=== PATIENT | female | born 1985 | race Caucasian/White ===

== ENCOUNTER 2019-10-21 12:32 | Outpatient (CLI) | payer BC, SELFPAY ==
--- NOTE | ~2019-10-21 | MMUS_ITS ---
EXAMINATION: MM diagnostic jose BI w luis m, US breast LT limited HISTORY: Lump behind left nipple TECHNIQUE: Bilateral ML, MLO and craniocaudal full field and left spot subareolar 3-D tomosynthesis i mages were performed and synthetic 2-D images were generated. CAD analysis was submitted and interpre carito. High resolution left subareolar breast ultrasound was performed. COMPARISON: 01/25/2015 ultrasound left breast biopsy and post biopsy left mammogram 01/25/2015 bilateral complete breast ultrasound BREAST PARENCHYMAL COMPOSITION: The breasts are heterogeneously dense, which may obscure small masses . FINDINGS: MAMMOGRAPHIC FINDINGS: An approximately 11 x 13 mm medial left subareolar circumscribed mass is noted, with biopsy marker. T here is a history of previous reportedly benign biopsy diagnosis of fibroadenoma. No suspicious mass or architectural distortion, malignant calcification, skin thickening or retractio n or significant new or developing density of the left breast is noted otherwise. ULTRASOUND: At 10:00 near the nipple there is a lobular 1.3 x 1.2 cm complex predominantly solid mass with internal communications writer al vascularity and some posterior shadowing. This is increased in size from approximately 7.6 x 10 x 9.5 mm size on 01/25/2015 Ultrasound-guided biopsy is recommended. IMPRESSION: 1. Increased size of complex subareolar left breast mass since 01/25/2015 2. Ultrasound-guided biopsy of left subareolar 10:00 breast mass is recommended BI-RADS category 4, suspicious findings. Dr. Rose telephoned the report and ultrasound-guided biopsy recommendation for the enlarging left dilip ast 10:[address] Worthy's associate Dr. Onofre on 10/21/2019 at 1412 hours. Reviewed, dictated and finalized at location A. IMPRESSION: 1. Increased size of complex subareolar left breast mass since 01/25/2015 2. Ultrasound-guided biopsy of left subareolar 10:00 breast mass is recommended BI-RADS category 4, suspicious findings. Dr. Rose telephoned the report and ultrasound-guided biopsy recommendation for the enlarging left breast 10:[address] Worthy's associate Dr. Fran ayala on 10/21/2019 at 1412 hours.
== END 2019-10-21 12:33 | disposition home or self-care (01) ==
PROVIDERS: PCP Family Medicine; Visit Provider Obstetrics & Gynecology
DX: N63.20 Unspecified lump in the left breast, unspecified quadrant (principal); R92.8 Other abnormal and inconclusive findings on diagnostic imaging of breast
CPT/HCPCS: 76642; 77062; 77066; G0279

== ENCOUNTER 2019-11-01 11:00 | Outpatient (CLI) | payer BC, SELFPAY ==
--- NOTE | ~2019-11-01 | MMUS_ITS ---
MM post biopsy invasive LT, US breast biopsy LT w image EXAMINATION: US GUIDED NEEDLE BIOPSY WITH VAC UUM ASSISTANCE DATE: 11/01/2019 11:59 CDT INDICATION: Left breast mass seen on recent examination. Ultrasound-guided core biopsy is requested to evaluate for malignancy. TECHNIQUE AND FINDINGS: The risks and potential benefits of the procedure were discussed with the patient, and written inform ed consent was obtained. After sterile preparation of the left breast, 1% lidocaine was utilized for local anesthesia. 1% lidocaine with epinephrine was used for deep anesthesia. A 10G vacuum-assisted biopsy gun needle was advanced through to the outer edge of the region of inter est from a superior approach utilizing sonographic guidance. A total of 4 tissue core samples were o btained through the lesion. An Inrad tissue marker clip was then placed at the biopsy site. Hemostas is was achieved. The patient tolerated procedure well and there was no evidence of immediate complication. The patien t was given verbal instructions partly is from the department. Left breast mammograms to document ti ssue marker clip placement. The tissue samples were submitted to surgical pathology for histologic an alysis.] IMPRESSION: 1. Successful ultrasound-guided vacuum-assisted biopsy of left breast mass with tissue marker placem ent. Please refer to pathology report for histologic analysis. Reviewed, dictated and finalized at location A. IMPRESSION: 1. Successful ultrasound-guided vacuum-assisted biopsy of left breast mass wit h tissue marker placement. Please refer to pathology report for histologic anal ysis.
== END 2019-11-01 11:01 | disposition home or self-care (01) ==
LOC: ANHIMG 11:05
PROVIDERS: PCP Family Medicine; Visit Provider Obstetrics & Gynecology
DX: R92.8 Other abnormal and inconclusive findings on diagnostic imaging of breast (principal)
CPT/HCPCS: 19083; 88305; A4648

== ENCOUNTER 2019-11-14 09:02 | Outpatient (CLI) | payer BC, SELFPAY ==
--- NOTE | ~2019-11-14 | US_ITS ---
EXAMINATION: US venous doppler [facility] DATE: 11/14/2019 09:52 INDICATION: History of pulmonary embolism and deep venous thrombosis TECHNIQUE: Rao scale images without and with compression and Doppler images of the left lower extrem ity veins were obtained. COMPARISON: 05/16/2019 FINDINGS: The left common femoral vein, profunda femoral vein, femoral vein, popliteal vein, peroneal trunk, posterior tibial veins, and greater saphenous vein are patent. IMPRESSION: 1. Patent left lower extremity veins. No evidence of deep venous thrombosis. Reviewed, dictated and finalized at location A.
== END 2019-11-14 09:03 | disposition home or self-care (01) ==
LOC: ANHIMG 09:04
PROVIDERS: PCP Family Medicine; Visit Provider Family Medicine
DX: I26.99 Other pulmonary embolism without acute cor pulmonale (principal); I82.409 Acute embolism and thrombosis of unspecified deep veins of unspecified lower extremity
CPT/HCPCS: 93971

== ENCOUNTER 2019-11-19 08:16 | Outpatient (CLI) | payer BC, SELFPAY ==
[2019-11-19 09:03] LABS: D Dimer 0.27 ug/mL (<0.48)
== END 2019-11-19 08:17 | disposition home or self-care (01) ==
PROVIDERS: PCP Family Medicine; Visit Provider Family Medicine
DX: I26.99 Other pulmonary embolism without acute cor pulmonale (principal); I82.409 Acute embolism and thrombosis of unspecified deep veins of unspecified lower extremity
CPT/HCPCS: 36415; 85380

== ENCOUNTER 2020-03-31 11:59 | Outpatient (CLI) | payer BC, SELFPAY ==
--- NOTE | ~2020-03-31 | US_ITS ---
EXAMINATION: US venous doppler [facility] DATE: 03/31/2020 12:46 INDICATION: Bilateral lower limb swelling TECHNIQUE: Rao scale images without and with compression and Doppler images of the bilateral lower e xtremity veins were obtained. COMPARISON: 11/14/2019 FINDINGS: The right common femoral vein, profunda femoral vein, femoral vein, popliteal vein, peroneal trunk, p osterior tibial veins, and greater saphenous vein are patent. The left common femoral vein, profunda femoral vein, femoral vein, popliteal vein, peroneal trunk, po sterior tibial veins, and greater saphenous vein are patent. IMPRESSION: 1. Patent bilateral lower extremity veins. No evidence of deep venous thrombosis. Reviewed, dictated and finalized at location A. IMPRESSION: 1. Patent bilateral lower extremity veins. No evidence of deep venous thrombosi s.
== END 2020-03-31 12:00 | disposition home or self-care (01) ==
LOC: ANHIMG 12:06
PROVIDERS: PCP Family Medicine; Visit Provider Family Medicine
DX: I82.409 Acute embolism and thrombosis of unspecified deep veins of unspecified lower extremity (principal); M79.606 Pain in leg, unspecified
CPT/HCPCS: 93970

== ENCOUNTER 2020-08-20 11:20 | Outpatient (CLI) | payer BC, SELFPAY ==
--- NOTE | ~2020-08-20 | US_ITS ---
EXAMINATION: US venous doppler LE RT DATE: 08/20/2020 12:08 INDICATION: Right lower limb pain. Personal history of venous thrombosis. TECHNIQUE: Grayscale ultrasound images without and with compression and Doppler ultrasound images of the right lower extremity veins were obtained. COMPARISON: None. FINDINGS: The visualized portions of right common femoral vein, profunda (deep) femoral vein, femoral vein, pop liteal vein, peroneal trunk, posterior tibial veins, peroneal veins, gastrocnemius vein and greater s aphenous vein outflow are patent. IMPRESSION: 1. No deep venous thrombosis in the right lower limb. Reviewed, dictated and finalized at location A.
== END 2020-08-20 11:21 | disposition home or self-care (01) ==
PROVIDERS: PCP Family Medicine; Visit Provider Physician Assistant
DX: Z86.718 Personal history of other venous thrombosis and embolism (principal); M25.561 Pain in right knee; M25.461 Effusion, right knee
CPT/HCPCS: 93971

== ENCOUNTER 2021-03-05 08:57 | Outpatient (CLI) | payer BC, SELFPAY ==
--- NOTE | ~2021-03-05 | US_ITS ---
EXAMINATION: US abdomen complete EXAM DATE: 03/05/2021 09:40 INDICATION: R10.9 - Unspecified abdominal pain. Bilat flank pain. TECHNIQUE: Multiple grayscale and Doppler images of the complete abdomen were obtained (by a technolo gist who performed the scan) and subsequently reviewed. There is no prior study for comparison. FINDINGS: The abdominal aorta is normal in caliber. Visualized portion IVC is patent. The pancreatic head a nd body are normal in appearance. The pancreatic tail is not visualized. The liver has normal echogenicity and contour. There are no focal liver lesions identified. There is no evidence of intrahepatic biliary duct dilation. Portal venous flow was seen in the hepatopedal , normal direction and has normal Doppler waveform. Common bile duct measures 3 mm, which is normal. The gallbladder wall is normal in thickness, with ex pected amount of distention. No sonographic evidence of pericholecystic fluid. There is no cholelit hiases. Technologist performing exam reports patient did not demonstrate sonographic Crystal's sign. Please note that this sign is less reliable in patients who have received pain medication. Right kidney: There is normal contour and echogenicity. It measures 11.4 x 4.6 x 5.8 centimeters. There are no focal renal lesions identified. There is no hydronephrosis. Left kidney: There is normal contour and echogenicity. It measures 10.3 x 4.9 x 4.6 centimeters. T here are no focal renal lesions identified. There is no hydronephrosis. Spleen normal in size at 10 cm with anechoic cystic region measuring 2.6 cm, benign. IMPRESSION: 1. Benign splenic cystic lesion. 2. No hydronephrosis or other acute findings. Reviewed, dictated and finalized at location A.
[2021-03-05 10:24] LABS: Add Urine Microscopic? YES; Appearance Urine Clear (Clear); Bilirubin Urine Negative (Negative); Blood Urine 1+ (Negative); Color Urine Straw (Yellow); Glucose Urine UA Negative (Negative); Ketones Urine Negative (Negative); Leukocyte Esterase Ur Trace LEU/UL (NEGATIVE); Mucus Urine Rare /lpf; Nitrate Urine Negative (Negative); Protein Urine Negative (Negative); Specific Grav Ur 1.006 (1.001-1.035); Squamous Epithelial Cell Urine Moderate /hpf (Few); Urobilinogen Urine Negative mg/dL (<2.0); WBC Urine 0-3 /hpf (0-3)
[2021-03-05 10:27] LABS: Basophils Percent Auto 0.6 % (0.2-1.2); Eosinophils Absolute Auto 0.1 K/mm3 (0-0.3); Eosinophils Percent Auto 0.8 % (0-4.4); Hematocrit 41.1 % (37.0-47.0); Hemoglobin 13.7 g/dL (12.0-15.0); Immature Granulocyte Absolute 0.02 K/mm3 (0.00-0.031); Immature Granulocyte Percent A 0.3 % (0-0.5); Lymphocytes Absolute Auto 2.17 K/mm3 (0.9-3.2); Lymphocytes Percent Auto 30.2 % (18.3-44.2); Mean Corpuscular HGB Conc 33.3 g/dl (32-36); Mean Corpuscular Hemoglobin 32.3 pg (26-34); Mean Corpuscular Volume 96.9 fl (80-100); Mean Platelet Volume 10.8 fl (7.4-10.4); Monocytes Absolute Auto 0.3 K/mm3 (0.1-0.6); Monocytes Percent Auto 4.5 % (2.6-8.5); Neutrophils Absolute Auto 4.6 K/mm3 (1.3-6.7); Neutrophils Percent Auto 63.6 % (45.5-73.1); Platelet Count Result 229 k/mm3 (150-375); Red Blood Count 4.24 M/mm3 (4.2-5.4); Red Cell Distribution Width 12.7 % (11.5-14.5); White Blood Count 7.2 K/mm3 (4.5-10.0)
[2021-03-05 12:38] LABS: Alanine Aminotransferase 18 U/L (4-35); Albumin Level 4.8 g/dL (3.5-5.1); Alkaline Phosphatase 43 U/L (38-126); Anion Gap 11 mmol/L (8-16); Aspartate Amino Transferase 23 U/L (14-36); Bilirubin,Total 0.5 mg/dL (0.2-1.3); Blood Urea Nitrogen 14 mg/dL (7-17); Calcium 9.2 mg/dL (8.4-10.2); Carbon Dioxide 23 mmol/L (22-30); Chloride 106 mmol/L (98-107); Estimated Glomerular Filt Rate > 60; Glucose 94 mg/dL (65-110); Potassium 4.2 mmol/L (3.4-5.0); Sodium 140 mmol/L (137-145)
== END 2021-03-05 08:58 | disposition home or self-care (01) ==
PROVIDERS: PCP Family Medicine; Visit Provider Physician Assistant
DX: I26.99 Other pulmonary embolism without acute cor pulmonale (principal); D73.4 Cyst of spleen; F41.9 Anxiety disorder, unspecified; J30.9 Allergic rhinitis, unspecified; I51.89 Other ill-defined heart diseases; Z00.00 Encounter for general adult medical examination without abnormal findings
CPT/HCPCS: 36415; 76700; 80053; 81001; 84443; 85025

== ENCOUNTER 2021-03-08 13:45 | Outpatient (CLI) | payer BC, SELFPAY ==
[2021-03-08 14:49] LABS: Beta HCG Quantitative < 2.39 mIU/ML
== END 2021-03-08 13:46 | disposition home or self-care (01) ==
LOC: ANHLAB 13:47
PROVIDERS: PCP Family Medicine; Visit Provider Physician Assistant
DX: N92.6 Irregular menstruation, unspecified (principal)
CPT/HCPCS: 36415; 84702

== ENCOUNTER 2023-03-13 14:14 | Outpatient (CLI) | payer BC, SELFPAY ==
--- NOTE | ~2023-03-13 | US_ITS ---
EXAMINATION: US venous doppler [facility] DATE: 03/13/2023 14:59 INDICATION: Left lower limb pain. TECHNIQUE: Grayscale ultrasound images without and with compression and Doppler ultrasound images of the left lower extremity veins were obtained. COMPARISON: Ultrasound 03/31/2020 FINDINGS: The visualized portions of left common femoral vein, profunda (deep) femoral vein, femoral vein, popl iteal vein, peroneal veins, posterior tibial veins, and greater saphenous vein outflow are patent. IMPRESSION: 1. No deep venous thrombosis. Reviewed, dictated and finalized at location A.
--- NOTE | ~2023-03-13 | XR_ITS ---
XR knee LT 3V 03/13/2023 14:46 Indication: Left knee pain Procedure: 3 views left knee Comparison: No prior studies for comparison. Findings: No fracture, subluxation or dislocation. There is anatomic alignment. No joint effusion. No foreign bodies. Impression: 1: No significant bone or joint abnormality. Reviewed, dictated and finalized at location A. Impression: 1: No significant bone or joint abnormality.
== END 2023-03-13 14:15 | disposition home or self-care (01) ==
PROVIDERS: PCP Family Medicine; Visit Provider Physician Assistant
DX: Z86.718 Personal history of other venous thrombosis and embolism (principal); M79.89 Other specified soft tissue disorders; M25.562 Pain in left knee
CPT/HCPCS: 73562; 93971

== ENCOUNTER 2023-03-27 15:24 | Outpatient (CLI) | payer BC, SELFPAY ==
--- NOTE | ~2023-03-27 | MR_ITS ---
EXAMINATION: MR knee LT wo con DATE: 03/27/2023 15:55 INDICATION: M25.562 - Pain in left knee TECHNIQUE: Magnetic resonance imaging (MRI) of the knee was performed without intravenous contrast. S equences included axial PD-weighted FS FSE, coronal PD-weighted FSE and PD-weighted FS FSE, sagittal PD-weighted FSE, and sagittal T2-weighted FS FSE. COMPARISON: X-ray left knee 03/13/2023 FINDINGS: Medial compartment: Mild medial compartment cartilage thinning. Blunted apex at the meniscal body. Oblique tear at the ju nction of the posterior horn and body extending to the undersurface Lateral compartment: Meniscus and cartilage intact. Patellofemoral compartment: Partial-thickness cartilage signal abnormality with subchondral edema on the medial facet. Retinacula intact. Ligaments and tendons: Mild thickening and increased signal intensity in the MCL. The ACL, PCL, and LCL are intact. Remainin g flexor and extensor tendons are intact. Fluid: No significant fluid collection. Osseous/other: No suspicious focal or diffuse marrow signal. IMPRESSION: Oblique undersurface tear of the junction of the medial meniscal posterior horn/body. Apical tear of the medial meniscal body. Partial MCL tear. Mild chondromalacia patella. Reviewed, dictated and finalized at location K. IMPRESSION: Oblique undersurface tear of the junction of the medial meniscal posterior horn /body. Apical tear of the medial meniscal body. Partial MCL tear. Mild chondromalacia patella.
== END 2023-03-27 15:25 ==
PROVIDERS: PCP Family Medicine; Visit Provider Physician Assistant
DX: S83.242A Other tear of medial meniscus, current injury, left knee, initial encounter (principal); S83.412A Sprain of medial collateral ligament of left knee, initial encounter; M22.42 Chondromalacia patellae, left knee
CPT/HCPCS: 73721

== ENCOUNTER 2023-04-30 08:28 | Outpatient (RCR) | payer BC, SELFPAY ==
--- NOTE | 2023-04-30 16:31 | PTOPEVAL1 ---
Assessment and note entered by Savannah Cassidy, PT, DPT Evaluation Information Assessment Status Evaluation Diagnosis L medial meniscus tear Onset 6 weeks Subjective Information Pt states she has a L knee medial meniscus tear, she is getting this repaired in Jun. She states she also has a history of plantar fascia pain. Reported Pain Level Pain Score 0: Self Report Assessment PT Clinical Summary Carlos presents to therapy today for her initial evaluation today with a diagnosis of a L knee medial meniscus tear. Today she demonstrates good knee ROM with a minor increase in pain with resistance. She reports pain with jogging and direction changes. Skilled therapy services are indicated to improve hip and knee stability. Plan of Care Interventions Electrical Stimulation,Gait Training,Hot Pack/Cold Pack,Manual Therapy,Neuro Re-education,Patient/ Caregiver Educati,Therapeutic Activities, Therapeutic Exercise PT Services Indicated Yes Treatment Frequency and 1x/wk for 4 visits Duration These treatments will address the objective and functional deficits as defined above. The patient will be advanced safely and appropriately in order for the patient to progress towards his/her prior level of function. Additional exercises will be introduced and as well as a comprehensive home exercise program upon discharge, if needed, ?to ensure carryover of functional gains achieved in the clinic. This treatment plan has been reviewed and agreement upon by the patient.
--- NOTE | 2023-04-30 16:36 | OPREHPOC ---
Outpatient Therapy Plan of Care This is a Multidisciplinary Plan of Care that may contain components documented by all disciplines (PT, OT, and ST.) PT Problem 1 PT Problem #1 Knowledge Deficit PT Goal 1 Goal Pt to be IND with issued Target Visit 4 PT Problem 2 PT Problem #2 Pain PT Goal 1 Goal Pt to report knee pain no greater than 3/10 during ADLs. Target Visit 4 PT Problem 3 PT Problem #3 Impaired Strength PT Goal 1 Goal Pt to demonstrates good knee alignment during resisted side stepping Target Visit 4 PT Goal 2 Goal Pt to demonstrate good knee alignment during functional squatting. Target Visit 4
--- NOTE | 2023-05-07 15:41 | PCPTNOTE ---
Patient called & cancelled scheduled appointment this date due to wanting to lighten her schedule. Called and LVM to see if she wants to be discharged.
--- NOTE | 2023-05-08 10:49 | PCPTNOTE ---
Patient called and states she has school and is too busy for therapy.
--- NOTE | 2023-06-15 08:30 | PTOPDC ---
Assessment and note entered by Savannah Cassidy, PT, DPT Evaluation Information Assessment Status Discharge - Pt Not Present Diagnosis L medial meniscus tear Onset 6 weeks Subjective Information Pt was evaluated on 04/30/23 and called back to cancel all of her appointments d/t not having time to complete therapy. Have not heard from pt since . Assessment PT Clinical Summary Pt was evaluated on 04/30/23 and did not complete any follow up visits. She will be discharged at this time.
== END 2023-06-15 09:07 | disposition home or self-care (01) ==
LOC: ANHGOSHPT 08:28
PROVIDERS: PCP Family Medicine; Visit Provider Orthopaedic Surgery
DX: S83.249A Other tear of medial meniscus, current injury, unspecified knee, initial encounter (principal); S89.92XA Unspecified injury of left lower leg, initial encounter
CPT/HCPCS: 97110; 97161

== ENCOUNTER → 2023-05-26 13:02 | Outpatient (CLI) | payer BC, SELFPAY ==
--- NOTE | ~2023-05-26 | US_ITS ---
EXAMINATION:US venous doppler LE BI INDICATION:History of DVT. TECHNIQUE: Multiple grayscale, color flow and Doppler images of the right and left lower extremity de ep venous systems were obtained and reviewed. COMPARISON:03/13/2023 FINDINGS: The common femoral, superficial femoral and popliteal veins demonstrate normal respiratory variation, augmentation and compressibility. Color flow is also seen within the posterior tibial, pe roneal, greater saphenous and profunda veins. IMPRESSION: 1: No lower extremity deep venous thrombosis. Reviewed, dictated and finalized at location L. HER SCREEN REPAIRER
== END ==
PROVIDERS: PCP Orthopaedic Surgery; Visit Provider Orthopaedic Surgery
DX: Z86.718 Personal history of other venous thrombosis and embolism (principal)
CPT/HCPCS: 93970

== ENCOUNTER 2023-08-04 00:16 | Day surgery (SDC) | payer BC, SELFPAY ==
[2023-05-21 08:24] VITALS: BMI 31.0
--- NOTE | 2023-05-21 08:30 | PC.NURSE ---
Report to the Outpatient Waiting Room, entrance under the green pavilion located off [facility], at time 11:30 on date 06/03/23. Planned Procedure Time: 1:30. Time changes happen often and if your time is changed the preop area will call you the afternoon before. - You and your visitor will be asked to self-screen and do not enter if you have any COVID symptoms. - A mask is optional within the hospital at this time. Patients may have clear liquids (water, carbonated beverages, clear teas, apple juice) until 3 hours prior to surgery (10:30) with a maximum of 20 ounces. - No food from midnight until time of surgery Take the following medications with a SIP of water the morning of surgery: NONE DO NOT STOP ANY OF YOUR OTHER PRESCRIPTION MEDICATIONS PRIOR TO SURGERY ?EXCEPT THE FOLLOWING Medications to discontinue per physician: ASPIRIN Date to take last dose: 05/27/23 PER PT Please no make-up, nail somali, hairspray, perfume, deodorant, or body powder the day of surgery. No jewelry (including any body piercings) or valuables the day of surgery, leave them at home. Please take a shower or bath the night before, or the morning of, surgery with an antibacterial soap. Wear comfortable, loose fitting clothing. - Jewelry must be removed prior to entering the operating room. Rings and piercings that are not removed may be cut off. - The hospital will not accept responsibility for valuables. - Please leave all valuables, including medications, at home the day of surgery. If you are going home after surgery, a licensed commercial collections driver must drive you home. - NO public transportation without another adult if you receive anesthesia. - We recommend that an adult stay with you for 24 hours following discharge. - We also recommend that you do not drive, make important decision, drink alcoholic beverages, or take any drugs that were not prescribed by your health care provider for at least 24 hours after your discharge time. Follow any additional instructions given to you from your surgeon. If you or anyone in your household have experienced Covid symptoms in the past week, please notify your surgeon or the nurse liaison at the phone number below for possible testing. Telephone instructions given to PT - DEIRDRE WILLINGHAM and asked if any additional questions and then verbalized understanding. Patient advised to call surgeon office or pre surgery nurse liaison [phone] if any additional questions.
--- NOTE | 2023-06-08 14:48 | PC.NURSE ---
Report to the Outpatient Waiting Room, entrance under the green pavilion located off [facility], at 1000 on 06/16/23. Planned Procedure Time: 1200. Time changes happen often and if your time is changed the preop area will call you the afternoon before. - You and your visitor will be asked to self-screen and do not enter if you have any COVID symptoms. - A mask is optional within the hospital at this time. Patients may have clear liquids (water, carbonated beverages, clear teas, apple juice) until 3 hours prior to surgery with a maximum of 20 ounces. - No food from midnight until time of surgery Take the following medications with a SIP of water the morning of surgery: none DO NOT STOP ANY OF YOUR OTHER PRESCRIPTION MEDICATIONS PRIOR TO SURGERY ?EXCEPT THE FOLLOWING Medications to discontinue per physician Aspirin Date to take last dose [address] Hogan instructions Please no make-up, nail armenian, hairspray, perfume, deodorant, or body powder the day of surgery. No jewelry (including any body piercings) or valuables the day of surgery, leave them at home. Please take a shower or bath the night before, or the morning of, surgery with an antibacterial soap. Wear comfortable, loose fitting clothing. - Jewelry must be removed prior to entering the operating room. Rings and piercings that are not removed may be cut off. - The hospital will not accept responsibility for valuables. - Please leave all valuables, including medications, at home the day of surgery. If you are going home after surgery, a licensed sheet pile driver operator must drive you home. - NO public transportation without another adult if you receive anesthesia. - We recommend that an adult stay with you for 24 hours following discharge. - We also recommend that you do not drive, make important decision, drink alcoholic beverages, or take any drugs that were not prescribed by your health care provider for at least 24 hours after your discharge time. Follow any additional instructions given to you from your surgeon. If you or anyone in your household have experienced Covid symptoms in the past week, please notify your surgeon or the nurse liaison at the phone number below for possible testing. Telephone instructions given to patient and asked if any additional questions and then verbalized understanding. Patient advised to call surgeon office or pre surgery nurse liaison [phone] if any additional questions.
--- NOTE | 2023-06-08 14:56 | PC.NURSE ---
Reviewed information from previous interview (05/21/23) w/patient-denies changes with exception COVID positive on 05/26/23, states tested negative this am.
[2023-07-28 09:25] VITALS: BMI 31.0
--- NOTE | 2023-07-28 09:26 | PC.NURSE ---
Report to the Outpatient Waiting Room, entrance under the green pavilion located off [facility], at time 1130 on date 08/04/23. Planned Procedure Time: 1330. Time changes happen often and if your time is changed the preop area will call you the afternoon before. - You and your visitor will be asked to self-screen and do not enter if you have any COVID symptoms. - A mask is optional within the hospital at this time. Patients may have clear liquids (water, carbonated beverages, clear teas, apple juice) until 3 hours prior to surgery with a maximum of 20 ounces. - No food from midnight until time of surgery Take the following medications with a SIP of water the morning of surgery: NONE DO NOT STOP ANY OF YOUR OTHER PRESCRIPTION MEDICATIONS PRIOR TO SURGERY ?EXCEPT THE FOLLOWING Medications to discontinue per physician: ASPIRIN Date to take last dose: 07/28/23 PER PT Please no make-up, nail danish, hairspray, perfume, deodorant, or body powder the day of surgery. No jewelry (including any body piercings) or valuables the day of surgery, leave them at home. Please take a shower or bath the night before, or the morning of, surgery with an antibacterial soap. Wear comfortable, loose fitting clothing. - Jewelry must be removed prior to entering the operating room. Rings and piercings that are not removed may be cut off. - The hospital will not accept responsibility for valuables. - Please leave all valuables, including medications, at home the day of surgery. If you are going home after surgery, a licensed otr driver must drive you home. - NO public transportation without another adult if you receive anesthesia. - We recommend that an adult stay with you for 24 hours following discharge. - We also recommend that you do not drive, make important decision, drink alcoholic beverages, or take any drugs that were not prescribed by your health care provider for at least 24 hours after your discharge time. Follow any additional instructions given to you from your surgeon. If you or anyone in your household have experienced Covid symptoms in the past week, please notify your surgeon or the nurse liaison at the phone number below for possible testing. Telephone instructions given to PT - DEIRDRE WILLINGHAM and asked if any additional questions and then verbalized understanding. Patient advised to call surgeon office or pre surgery nurse liaison [phone] if any additional questions.
--- NOTE | 2023-08-03 14:03 | WPDANESEPPF ---
Anes - Initial Pre Proc Eval Procedure: Operation Date: 08/04/23 13:30 Proposed Procedures p Left Knee Arthroscopy, Left Plantar Fascia Injection - Jonathon Baez MD Date/Time: 08/03/23 14:03 Surgeon: Jonathon Baez MD Pre Op Diagnosis: Lt Knee Medial Meniscus Tear, (cont) Patient Data Age: 37 Gender: F Height: 1.6 m Weight: 79.4 kg Allergies Allergy/AdvReac Type Severity Reaction Status Date / Time meloxicam AdvReac Mild Rash Verified 08/04/23 11:33 Home Medications Medication Instructions Recorded Confirmed Type aspirin 81 mg chewable tablet 81 mg PO DAILY 05/21/23 08/04/23 History chlorhexidine gluconate 4 % 1 applic topical DAILY #237 mL 05/27/23 07/30/23 Rx topical liquid (Hibiclens) rivaroxaban 10 mg tablet (Xarelto) 10 mg PO DAILY 14 days #14 tabs 07/30/23 07/30/23 Rx Patient hx anesthesia problems: none Family hx anesthesia problems: none Results Review: All pre-operative results and documents have been reviewed as part of the pre-operative evaluation. [facility] Past Medical History Medical History (Updated 07/30/23 @ 11:28 by NAVEEN Burden) Allergic rhinitis Anxiety Diastolic dysfunction DVT (deep venous thrombosis) History of DVT/PE Left knee injury Migraines Typically 1 time a month. Plantar fasciitis of left foot Pulmonary embolism Wears glasses Surgical History Surgical History History of wisdom tooth extraction Family History Family History Father Family history of lung cancer Mother Family history of lung cancer Grandparent History of blood clots Cerebrovascular accident Unknown Hypertension Arthritis Social History Social History Social History: The patient lives in [place]. She has 2 sons, one is 13 years old today and the other is 9 years old. She works at [employer]. She does not answer mother, Jess Jerry, as her surrogate decision-maker and she wishes to be full code. She smokes socially. No alcohol or drug abuse. Smoking status: Never smoker Alcohol intake: current Drinks per week: 3 Substance use: never Substance use type: does not use Lack of Transportation: No Lack of Food: Never True Current Housing: I Have Housing Concerned About Future Housing: No Difficulty Paying Gas/Electric Bills: No Difficulty Paying for Meds: No Currently Unemployed: No Education: Bachelor's Degree Difficulty w/ Childcare or Family Care: No Living arrangements: with family Occupation/Education: occupation Additional occupation/education comments: seaman officer- [employer] Gender identity (if verbalized by the patient): Female Spiritual care concerns: No Agree to blood products: Yes Anes - Eval Final PreProcedure Day of Procedure 08/03/23 14:03 Patient weight: obese Heart: regular rate and rhythm Lungs: clear to auscultation Airway: Mallampati scale class II Neurological: alert and oriented Last oral intake: >/= 8 hours ASA classification: III Emergent: no Anesthetic plan: proceed Anesthesia type and monitoring: general LMA and standard monitoring Results Review: All pre-operative results and documents have been reviewed as part of the pre-operative evaluation. Informed Consent: The patient's anesthetic plan and its attendant risks and benefits were discussed with the patient/family/POA. Questions were solicited and answers provided to the satisfaction of the patient/family/POA.
[2023-08-04] VITALS (7 sets, daily range): BP systolic 97–139; BP diastolic 59–72; PULSE 61–92; RESP 14–20; TEMP 36.4–36.6; O2SAT 99–100
--- NOTE | 2023-08-04 07:16 | WPDHPUPDATE1 ---
History and Physical Update Update Date/Time: 08/04/23 07:16 History and Physical has been reviewed, including an updated exam of the patient. There are NO changes in the patient's condition. Risks, benefits, and alternatives have been discussed and questions answered. Patient agrees to proceed with procedure.
[2023-08-04] MEDS: CELECOXIB 200 MG CAPSULE PO (11:36)
[2023-08-04] MEDS: ACETAMINOPHEN 500 MG TABLET 1000 MG PO (11:36)
[2023-08-04] MEDS: LACTATED RINGERS 1,000 ML 30 ML IV CONT (11:53)
[2023-08-04] MEDS: ceFAZolin 2 GM/D5W 50 ML 2 GM/50 ML BAG IVPB (14:12)
[2023-08-04] MEDS: methylPREDNISolone ACETATE 80 MG/ML VIAL IM (14:49)
[2023-08-04] MEDS: LIDOCAINE HCL 1% LOCAL INJ 10 ML VIAL 2 ML INFILTRATE (14:51)
[2023-08-04] MEDS: BUPivacaine HCL 0.5% 10 ML AMP 30 ML INFILTRATE (14:57)
--- NOTE | 2023-08-04 15:27 | W.PM.PROC2 ---
Procedure Note - Detailed Date of Procedure 08/04/23 Pre-op Diagnosis Lt Knee Medial Meniscus Tear, (cont) Lt Foot Plantar Fasciitis Post-op Diagnosis Same Procedure Performed LEFT KNEE SCOPE, Left Foot injection Surgeon Jonathon Baez MD Anesthesia General Description of Procedure PATIENT WAS TAKEN TO THE OR. LEFT LEG WAS PREPPED AND DRAPED STERILE. TROCARS WERE PLACED IN THE USUAL FASHION. CAMERA WAS INTRODUCED. THERE WAS CHONDROMALACIA TO THE PATELLA FEMORAL JOINT. THERE WAS A LOT OF SYNOVITIS IN ALL COMPARTMENTS. THE MEDIAL COMPARTMENT SHOWED CHONDROMALACIA TO THE MEDIAL FEMORAL CONDYLE. A SHAVER WAS USED TO PREFORM A CHONDROPLASTY. THERE WAS A MEDIAL MENISCUS TEAR. THE BULK OF THE TEAR WAS TUCKED UNDERNEATH ITSELF AND EXTENDED THROUGHOUT POSTERIOR HORN OF THE MENISCUS. THE FLAP WAS EXPOSED WITH A PROBE. THE TEAR THEN WAS RESECTED WITH A BITER AND A SHAVER DOWN TO A SMOOTH BASE. THE ACL WAS INTACT. THE LATERAL MENISCUS WAS NOT TORN. THE LATERAL COMPARTMENT HAD MINIMAL CHONDROMALACIA. CHONDROPLASTY WAS PREFORMED. A SYNOVECTOMY WAS PREFORMED WELL. THE PATELLO FEMORAL JOINT UNDERWENT CHONDROPLASTY. THERE WAS GRADE 2 CHONDROMALACIA IN PART OF THE TROCHLEA AND PART OF THE PATELLA. SYNOVECTOMY WAS PREFORMED IN THE SUPERIOR MEDIAL COMPARTMENT. THE WOUNDS WERE APPROXIMATED WITH 4.0 NYLON. STERILE DRESSING WAS APPLIED. PATIENT WAS EXTUBATED. Estimated Blood Loss 5 Complications No immediate complications Condition Stable Disposition PACU
[2023-08-04] MEDS: fentaNYL CITRATE INJ (*CRX) 100 MCG/2 ML VIAL 25 MCG IV PUSH ×4 (15:32→15:48)
== END 2023-08-04 16:57 | disposition home or self-care (01) ==
PROVIDERS: PCP Family Medicine; Visit Provider Orthopaedic Surgery
PROC: (CPT 29870; principal; 2023-08-04 13:30)
DX: S83.242A Other tear of medial meniscus, current injury, left knee, initial encounter (principal); M22.42 Chondromalacia patellae, left knee; M65.862 Other synovitis and tenosynovitis, left lower leg; M72.2 Plantar fascial fibromatosis; X50.0XXA Overexertion from strenuous movement or load, initial encounter; F41.9 Anxiety disorder, unspecified; Z86.718 Personal history of other venous thrombosis and embolism; Z79.82 Long term (current) use of aspirin; Z79.01 Long term (current) use of anticoagulants; Z79.899 Other long term (current) drug therapy
CPT/HCPCS: 29881; 29876; 20550; A9270; J0690; J1040; J1100; J2250; J2405; J2704; J3010; J7120

== ENCOUNTER 2023-08-17 10:21 | Outpatient (CLI) | payer BC, SELFPAY ==
--- NOTE | ~2023-08-17 | US_ITS ---
EXAMINATION: US venous doppler [facility] DATE: 08/17/2023 10:55 INDICATION: Left lower limb pain TECHNIQUE: Grayscale ultrasound images without and with compression and Doppler ultrasound images of the left lower extremity veins were obtained. COMPARISON: None. FINDINGS: The visualized portions of left common femoral vein, profunda (deep) femoral vein, femoral vein, popl iteal vein, peroneal veins, posterior tibial veins, gastrocnemius vein and greater saphenous vein out flow are patent. IMPRESSION: 1. No deep venous thrombosis in the left lower limb. Reviewed, dictated and finalized at location A.
== END 2023-08-17 10:22 ==
LOC: MICIMG 10:23
PROVIDERS: PCP Orthopaedic Surgery; Visit Provider Orthopaedic Surgery
DX: M79.662 Pain in left lower leg (principal)
CPT/HCPCS: 93971

== ENCOUNTER 2023-09-14 08:41 | Emergency (ER) | payer BC, SELFPAY ==
[2023-09-14 08:59] VITALS: BP 113/61; PULSE 62; RESP 16; TEMP 36.5; O2SAT 100
--- NOTE | 2023-09-14 09:22 | ED.WOUNDLAC ---
HPI - Wound/Laceration General Chief Complaint: Wound/Laceration Stated Complaint: Upholstery Staple in hand Time Seen by Provider: 09/14/23 09:01 Source: patient and RN notes reviewed Mode of arrival: ambulatory Limitations: no limitations History of Present Illness HPI narrative: Patient presents today stating she has and a pulse tree staple in her left hand that was sustained approximately 20 minutes prior to arrival at home when she with a pulse during a chair. She did not attempt removal at home. She is not up-to-date on her tetanus vaccine. Related Data Allergies Allergy/AdvReac Type Severity Reaction Status Date / Time meloxicam AdvReac Mild Rash Verified 08/17/23 13:12 Review of Systems Review of Systems: CONSTITUTIONAL: Denies body aches, fever, chills, or sweats. EYES: Denies visual changes, redness, or discharge. ENT: Denies rhinorrhea, congestion, sore throat, or otalgia. CARDIOVASCULAR: Denies chest pain, palpitations, or edema. RESPIRATORY: Denies cough or dyspnea. GASTROINTESTINAL: Denies abdominal pain, nausea, vomiting, or diarrhea. GENITOURINARY: Denies dysuria or hematuria. SKIN: + staple in left hand MUSCULOSKELETAL: Denies back pain, joint pain, or myalgia. NEUROLOGIC: Denies headache, numbness, tingling, or weakness. PSYCH: Denies depression or anxiety. [facility] Past Medical History Medical History Allergic rhinitis Anxiety Diastolic dysfunction DVT (deep venous thrombosis) History of DVT/PE Left knee injury Migraines Typically 1 time a month. Plantar fasciitis of left foot Pulmonary embolism Wears glasses Surgical History Surgical History History of wisdom tooth extraction Family History Family History Father Family history of lung cancer Mother Family history of lung cancer Grandparent History of blood clots Cerebrovascular accident Unknown Hypertension Arthritis Social History Social History Social History: The patient lives in [place]. She has 2 sons, one is 13 years old today and the other is 9 years old. She works at [employer]. She does not answer mother, Jess Jerry, as her surrogate decision-maker and she wishes to be full code. She smokes socially. No alcohol or drug abuse. 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 Please see nursing chart for further information. There is no relevant family history pertinent to the presenting complaint Exam Narrative: GENERAL: Well-appearing, well-nourished, and in no acute distress. HEAD: Normocephalic, atraumatic. EYES: EOMI. No redness or drainage. Conjunctivae normal. ENT: Mucous membranes pink and moist. NECK: Normal AROM. CHEST: No respiratory distress. EXTREMITIES: Normal range of motion. No edema. SKIN: Warm, dry. Capillary refill normal. Normal skin turgor. Large staple to left thenar eminence. Distal sensation intact. Capillary refill. Patient is able to move the thumb, but
[2023-09-14] MEDS: TETANUS,DIPHTHERIA,AC PERTUSSIS ADULT (0.5 ML) BOOSTRIX IM (09:32)
== END 2023-09-14 09:43 | disposition home or self-care (01) ==
PROVIDERS: Emergency Provider Nurse Practitioner; PCP Family Medicine
DX: S61.442A Puncture wound with foreign body of left hand, initial encounter (principal); X58.XXXA Exposure to other specified factors, initial encounter; Z23 Encounter for immunization; M19.90 Unspecified osteoarthritis, unspecified site; Z86.718 Personal history of other venous thrombosis and embolism; Z86.711 Personal history of pulmonary embolism; Z86.16 Personal history of COVID-19
CPT/HCPCS: 90471; 90715; 99213; G0463

== ENCOUNTER 2024-06-28 08:22 | Outpatient (CLI) | payer BC, SELFPAY ==
--- OUTSIDE RECORDS SUMMARY | 2024-06-28 08:38 | XMS_ITS | Clinical Summary ---
Author Organization [facility] Address [address] [place] [address] Phone Care Team Providers Care Parts Processor Name Role Phone Kuldeep Doty MD Primary Care Provider [phone] Allergies No known active allergies Medications busPIRone (BUSPAR) 5 mg tablet Take 5 mg by mouth 3 times daily. Active Active Problems No known active problems Social History Tobacco Use Types Packs/Day Years Used Date Smoking Tobacco: Never Alcohol Use Standard Drinks/Week Comments Not Currently 0 (1 standard drink = 0.6 oz pur e alcohol) Comments Unknown Sex and Gender Information Value Date Recorded Sex Assigned at Not on file Legal Sex Female 5:18 PM BRIDGE MAINTENANCE WORKER Gender Identity Not on file Sexual Orientation Not on file Last Filed Vital Signs Vital Sign Reading Time Taken Comments Blood Pressure 110/52 07/25/2020 2:25 PM BRIDGE MAINTENANCE WORKER Pulse 88 07/25/2020 2:25 PM BRIDGE MAINTENANCE WORKER Temperature 36.7 ??C (98 ??F) 07/25/2020 2:25 PM BRIDGE MAINTENANCE WORKER Respiratory Rate 16 06/27/2019 9:17 PM BRIDGE MAINTENANCE WORKER Oxygen Saturation 97% 07/25/2020 2:25 PM BRIDGE MAINTENANCE WORKER Inhaled Oxygen Concentration - - Weight 77.7 kg (171 lb 6.4 oz) 07/25/2020 2:25 P M BRIDGE MAINTENANCE WORKER Height 160 cm (5' 3 ) 07/25/2020 2:25 PM BRIDGE MAINTENANCE WORKER Body Mass Index 30.36 07/25/2020 2:25 PM BRIDGE MAINTENANCE WORKER Plan of Treatment Health Maintenance Due Date Last Done Comments DTAP/TDAP/TD VACCINES (1 - Tdap) 09/24/2006 HEPATITIS B VACCINES (1 of 3 - 19+ 3-dose series) 09/24/2006 CERVICAL CANCER SCREENING 04/20/20212017, 11/20/2016, 09/24/2015 INFLUENZA VACCINE (#1) 2023 HPV VACCINES Aged Out No longer eligi ble based on patient's age to complete this topic PNEUMOCOCCAL VACCINE 0-64 YEARS Aged Out No longer eligible b ased on patient's age to complete this topic Care Teams Parts Processor Relationship Specialty Start Date End Date Kuldeep Doty MD [address] [facility] [address] [facility] [address] [place] [address] PCP - General Family Practice 05/18/19
--- OUTSIDE RECORDS SUMMARY | 2024-06-28 08:38 | XMS_ITS | Clinical Summary ---
Author Organization [facility] Address [address] [place] [address]. [place], [place] [address] [place] [address] Care Team Providers Care Allergy And Immunology Chief Name Role Phone Unavailable Primary Care Provider Unavailabl e Social History Tobacco Use Types Packs/Day Years Used Date Smoking Tobacco: Never Assessed Comments Unknown Sex and Gender Information Value Date Recorded Sex Assigned at Not on file Legal Sex Female 3:49 PM PATIENT TRANSPORT OFFICER Gender Identity Not on file Sexual Orientation Not on file Last Filed Vital Signs Vital Sign Reading Time Taken Comments Blood Pressure 118/70 07/28/2011 1:39 PM PATIENT TRANSPORT OFFICER Pulse 64 07/28/2011 1:39 PM PATIENT TRANSPORT OFFICER Temperature - - Respiratory Rate - - Oxygen Saturation - - Inhaled Oxygen Concentration - - Weight - - Height - - Body Mass Index - - Plan of Treatment Health Maintenance Due Date Last Done Comments Cervical Cancer Screening Pa p Smear (Age 30 to 64) Every 3 Years 1987 Annual Physical 09/24/1990 Hepatitis C 09/24/2005 DTaP, Tdap and Td Vaccines ( 1 - Tdap) 09/24/2006 Hepatitis B Vaccines (1 of 3 - 19+ 3-dose series) 09/24/2006 Cervical Cancer Screening Pa p with HPV Testing (Age 30 to 64) Every 5 Years 09/24/2017 Cervical Cancer Screening with HPV 09/24/2017 COVID-19 Vaccine ( - 2023-2 5 season) 2024 Influenza Adult (#1) 2024 HPV Vaccines Aged Out No longer eligi ble based on patient's age to complete this topic Meningococcal B Vaccine Aged Out No l onger eligible based on patient's age to complete this topic Meningococcal Vaccine Aged Out No boby rubén eligible based on patient's age to complete this topic Pneumococcal Vaccine: Pediat rics (0 to 5 Years) and At-Risk Patients (6 to 64 Years) Aged Out No longer eligible b ased on patient's age to complete this topic RSV Immunizations Under 20 Months Aged Out No longer eligible based on patient's age to complete this topic
[2024-06-28 09:09] LABS: Basophils Percent Auto 0.5 % (0.2-1.2); Eosinophils Absolute Auto 0.1 K/mm3 (0-0.3); Eosinophils Percent Auto 0.9 % (0-4.4); Hematocrit 38.3 % (37.0-47.0); Hemoglobin 12.5 g/dL (12.0-15.0); Immature Granulocyte Absolute 0.02 K/mm3 (0.00-0.031); Immature Granulocyte Percent A 0.3 % (0-0.5); Lymphocytes Absolute Auto 2.06 K/mm3 (0.9-3.2); Lymphocytes Percent Auto 31.1 % (18.3-44.2); Mean Corpuscular HGB Conc 32.6 g/dl (32-36); Mean Corpuscular Hemoglobin 30.9 pg (26-34); Mean Corpuscular Volume 94.6 fl (80-100); Mean Platelet Volume 10.7 fl (7.4-10.4); Monocytes Absolute Auto 0.3 K/mm3 (0.1-0.6); Monocytes Percent Auto 4.4 % (2.6-8.5); Neutrophils Absolute Auto 4.2 K/mm3 (1.3-6.7); Neutrophils Percent Auto 62.8 % (45.5-73.1); Platelet Count Result 236 k/mm3 (150-375); Red Blood Count 4.05 M/mm3 (4.2-5.4); Red Cell Distribution Width 12.6 % (11.5-14.5); White Blood Count 6.6 K/mm3 (4.5-10.0)
[2024-06-28 10:15] LABS: Alanine Aminotransferase 18 U/L (6-35); Alkaline Phosphatase 40 U/L (38-126); Anion Gap 7 mmol/L (4-12); Aspartate Amino Transferase 21 U/L (14-36); Bilirubin,Total 0.5 mg/dL (0.2-1.3); Blood Urea Nitrogen 10 mg/dL (7-17); Calcium 8.8 mg/dL (8.4-10.2); Carbon Dioxide 27 mmol/L (22-30); Chloride 105 mmol/L (98-107); Cholesterol 140 mg/dL (0-200); Estimated Glomerular Filt Rate > 60; Glucose 86 mg/dL (65-110); HDL Direct 48 mg/dL; Potassium 3.9 mmol/L (3.4-5.0); Sodium 139 mmol/L (137-145); Triglycerides 41 mg/dL (<150)
[2024-06-28 10:26] LABS: LDL Cholesterol Direct 77 mg/dL
== END 2024-06-28 08:23 | disposition home or self-care (01) ==
PROVIDERS: PCP Family Medicine; Visit Provider Student in an Organized Health Care Education/Training Program
DX: Z00.00 Encounter for general adult medical examination without abnormal findings (principal); Z13.220 Encounter for screening for lipoid disorders
CPT/HCPCS: 36415; 80053; 80061; 85025

== ENCOUNTER 2024-12-04 20:29 | Emergency (ER) | payer BC, SELFPAY ==
--- NOTE | ~2024-12-04 | CT_ITS ---
Clinical Indication: Right rib pain, dyspnea CT Scan of the Chest, Abdomen, and Pelvis with Contrast: Technique: Contiguous sections were acquired throughout the chest, abdomen, and pelvis after intraven ous administration of 100 cc of Omnipaque 350. Dose reduction technique was used on this scan by em ruelas automated exposure control and iterative reconstruction technique. The dose-length product (DL P) was 997.43 mGy-cm. Findings: There is no evidence of any significant mediastinal, hilar or axillary lymphadenopathy. The mediastin al soft tissues appear normal. No pulmonary embolus. No aortic aneurysm or dissection. There is no evidence of pleural or pericardial effusion. The lungs are clear, aside from calcified right lower lobe granulomas. The liver, spleen, gallbladder, adrenals and kidneys are within normal limits. There is a 1.5 cm hypo dense mass the pancreatic body/tail (series 5 image 47). No evidence of aortic aneurysm. No lymphade nopathy. No bowel obstruction or bowel wall thickening. There is no evidence to suggest acute appendicitis. Urinary bladder is unremarkable. 1.8 cm left ovarian cyst present. Minimal pelvic ascites present. Impression: 1.5 cm hypodense mass the pancreatic body/tail, as above. This could reflect a hypodense solid mass v ersus possibly cystic lesion. Follow-up pre and post contrast pancreatic protocol mass CT or MR recom mended for further evaluation. No other significant findings. Reviewed, dictated and finalized at location . Impression: 1.5 cm hypodense mass the pancreatic body/tail, as above. This could reflect a hypodense solid mass versus possibly cystic lesion. Follow-up pre and post cont rast pancreatic protocol mass CT or MR recommended for further evaluation. No other significant findings.
--- OUTSIDE RECORDS SUMMARY | 2024-12-04 20:31 | XMS_ITS | Clinical Summary ---
Author Organization [facility] Address [facility] [place] [address] Care Team Providers Care Salvage Winder Name Role Phone Unavailable Primary Care Provider Unavailabl e Social History Tobacco Use Types Packs/Day Years Used Date Smoking Tobacco: Never Assessed Comments Unknown Sex and Gender Information Value Date Recorded Sex Assigned at Not on file Legal Sex Female 3:49 PM MEDICAL DERMATOLOGIST Gender Identity Not on file Sexual Orientation Not on file Last Filed Vital Signs Vital Sign Reading Time Taken Comments Blood Pressure 118/70 07/28/2011 1:39 PM MEDICAL DERMATOLOGIST Pulse 64 07/28/2011 1:39 PM MEDICAL DERMATOLOGIST Temperature - - Respiratory Rate - - [...] Cancer Screening with HPV 09/24/2017 COVID-19 Vaccine (2023-2 5 season) 2024 HPV Vaccines Aged Out No longer eligi ble based on patient's age to complete this topic Meningococcal B Vaccine Aged Out No l onger eligible based on patient's age to complete this topic Meningococcal Vaccine Aged Out No boby rubén eligible based on patient's age to complete this topic Pneumococcal Vaccine: Pediat rics (0 to 5 Years) and At-Risk Patients (6 to 49 Years) Aged Out No longer eligible b ased on patient's age to complete this topic RSV Immunizations Under 20 Months Aged Out No longer eligible based on patient's age to complete this topic
--- OUTSIDE RECORDS SUMMARY | 2024-12-04 20:31 | XMS_ITS | Clinical Summary ---
Author Organization [facility] Address [address] [place] [address] Phone Care Team Providers Care Optical Effects Line Up Person Name Role Phone Kuldeep Doty MD Primary Care Provider [phone] Allergies No known active allergies Medications busPIRone [...] on file Legal Sex Female 5:18 PM FREELANCE DISPLAYER Gender Identity Not on file Sexual Orientation Not on file Last Filed Vital Signs Vital Sign Reading Time Taken Comments Blood Pressure 110/52 07/25/2020 2:25 PM FREELANCE DISPLAYER Pulse 88 07/25/2020 2:25 PM FREELANCE DISPLAYER Temperature 36.7 C (98 F) 07/25/2020 2:25 PM FREELANCE DISPLAYER Respiratory Rate 16 06/27/2019 9:17 PM FREELANCE DISPLAYER Oxygen Saturation 97% 07/25/2020 2:25 PM FREELANCE DISPLAYER Inhaled Oxygen Concentration - - Weight 77.7 kg (171 lb 6.4 oz) 07/25/2020 2:25 P M FREELANCE DISPLAYER Height 160 cm (5' 3) 07/25/2020 2:25 PM FREELANCE DISPLAYER Body Mass Index 30.36 07/25/2020 2:25 PM FREELANCE DISPLAYER Plan of Treatment Health Maintenance Due Date Last Done Comments DTAP/TDAP/TD VACCINES (1 - Tdap) 09/24/2006 HEPATITIS B VACCINES (1 of 3 - 19+ 3-dose series) 09/24/2006 HPV/Cotest (21-29) 09/24/2008 HPV/Cotest (30-65) 09/24/2017 CERVICAL CANCER SCREENING 04/20/2021 PAP SMEAR 04/20/2021 04/20/2018, 11/20/2016, 09/24/2015 INFLUENZA VACCINE (#1) 2024 HPV VACCINES Aged Out No longer eligi ble based on patient's age to complete this topic Care Teams Optical Effects Line Up Person Relationship Specialty Start Date End Date Kuldeep Doty MD [address] [facility] [address] [place] [address] PCP - General Family Practice 05/18/19
[2024-12-04 20:44] VITALS: BP 125/75; PULSE 68; RESP 18; TEMP 36.6; O2SAT 100
--- NOTE | 2024-12-04 20:48 | ECG_ITS ---
Test Date: 2024-12-04 20:56:49 Measurements Intervals [place] Rate: 65 P: -5 RI: 112 QRS: 39 QRSD: 76 T: 28 QT: 404 QTc: 421 Interpretive Statements SINUS RHYTHM WITH SHORT RI INTERVAL No previous ECG available for comparison Electronically Signed On 12-05-2024 22:30:33 CDT by Eliza Nichole M.D.
--- OUTSIDE RECORDS SUMMARY | 2024-12-04 21:33 | XMS_ITS | Clinical Summary ---
Author Organization [facility] Address [address] [place] [address] Phone Care Team Providers Care Qa Reviewer Name Role Phone Kuldeep Doty MD Primary Care Provider Allergies No known active allergies Medications busPIRone [...] on file Legal Sex Female 5:18 PM PRINCIPAL ARCHITECT Gender Identity Not on file Sexual Orientation Not on file Last Filed Vital Signs Vital Sign Reading Time Taken Comments Blood Pressure 110/52 07/25/2020 2:25 PM PRINCIPAL ARCHITECT Pulse 88 07/25/2020 2:25 PM PRINCIPAL ARCHITECT Temperature 36.7 C (98 F) 07/25/2020 2:25 PM PRINCIPAL ARCHITECT Respiratory Rate 16 06/27/2019 9:17 PM PRINCIPAL ARCHITECT Oxygen Saturation 97% 07/25/2020 2:25 PM PRINCIPAL ARCHITECT Inhaled Oxygen Concentration - - Weight 77.7 kg (171 lb 6.4 oz) 07/25/2020 2:25 P M PRINCIPAL ARCHITECT Height 160 cm (5' 3) 07/25/2020 2:25 PM PRINCIPAL ARCHITECT Body Mass Index 30.36 07/25/2020 2:25 PM PRINCIPAL ARCHITECT Plan of Treatment Health Maintenance Due Date [...] age to complete this topic Care Teams Qa Reviewer Relationship Specialty Start Date End Date Kuldeep Doty MD [address] [facility] [address] [place] [address] PCP - General Family Practice 05/18/19
--- OUTSIDE RECORDS SUMMARY | 2024-12-04 21:33 | XMS_ITS | Clinical Summary ---
Author Organization [facility] Address [facility] [place] [address] Care Team Providers Care Boiler Plant Operator Name Role Phone Unavailable Primary Care Provider Unavailabl e Social History Tobacco Use Types Packs/Day Years Used Date Smoking Tobacco: Never Assessed Comments Unknown Sex and Gender Information Value Date Recorded Sex Assigned at Not on file Legal Sex Female 3:49 PM DRAFTER STRUCTURAL Gender Identity Not on file Sexual Orientation Not on file Last Filed Vital Signs Vital Sign Reading Time Taken Comments Blood Pressure 118/70 07/28/2011 1:39 PM DRAFTER STRUCTURAL Pulse 64 07/28/2011 1:39 PM DRAFTER STRUCTURAL Temperature - - Respiratory Rate - - [...]
--- NOTE | 2024-12-04 21:58 | ED_ITS ---
HPI - Fall General Chief Complaint: Fall Stated Complaint: fall, abd pain, sob Time Seen by Provider: 12/04/24 21:15 History of Present Illness HPI Narrative: 39-year-old female with a history of anxiety, DVT and PE several years ago which was reportedly provoked from control, not on anticoagulants presents to the emergency department for right-sided chest wall and abdominal pain and shortness of breath after a fall that occurred yesterday. Patient states she was walking down the stairs while using her phone when she tripped and fell down 6 stairs, landing on her left buttock. She believes in the process she injured the right side of her torso. She denies hitting her head or lose consciousness. She is reporting pain to the right abdomen and right lower ribs that is worse with movement. She notes a large bruise to her left buttock but states this area is not bothering her. She also states since the incident she has been unable to catch her breath. She denies cough or congestion, hemoptysis, lower extremity edema, recent surgeries or hospitalizations, dysuria or hematuria, fever, N/V/D. Related Data Home Medications ?Medication ?Instructions ?Recorded ?Confirmed ?Last Taken ?Type No Home Medications 06/27/24 06/27/24 Unknown History Allergies Allergy/AdvReac Type Severity Reaction Status Date / Time meloxicam AdvReac Mild Rash Verified 06/27/24 14:56 Review of Systems 2 Review of Systems: All systems reviewed & are unremarkable except as noted in HPI and below PMFSH Past Medical History Medical History Plantar fasciitis of left foot Left knee injury Wears glasses Allergic rhinitis Diastolic dysfunction Anxiety DVT (deep venous thrombosis) History of DVT/PE Pulmonary embolism Migraines Typically 1 time a month. Surgical History Surgical History History of wisdom tooth extraction Family History Family History Father Family history of lung cancer Mother Family history of lung cancer Grandparent History of blood clots Cerebrovascular accident Unknown Hypertension Arthritis Social History Social History Social History: The patient lives in [place]. She has 2 sons, one is 13 years old today and the other is 9 years old. She works at [employer]. She does not answer mother, Jess Jerry, as her surrogate decision-maker and she wishes to be full code. She smokes socially. No alcohol or drug abuse. 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 HEAD: Normocephalic, atraumatic. EYES: PERRLA and EOMI. ENT: Nares clear, no rhinorrhea or epistaxis. Mucous membranes moist. NECK: No midline cervical spinous tenderness, crepitus, step-offs or deformities BACK: No midline thoracolumbar spinous tenderness, crepitus, step-offs or deformities CHEST: Clear to auscultation. No respiratory distress. Mild tenderness to the right anterior lateral ribs with no overlying crepitus, step-offs or deformities, no overlying ecchymosis HEART: Regular rate and rhythm. No murmur heard. Normal peripheral pulses. ABDOMEN: Normoactive bowel sounds. Tenderness to the right flank and right lower quadrant with no rebound or rigidity. No overlying ecchymosis EXTREMITIES: Large ecchymosis to the left buttock with no significant tenderness, no induration, no palpable hematoma, full range of motion of hip. DP pulse is 2+. Sensation intact. SKIN: Warm, dry, no rash. NEURO: No focal deficits. Alert and oriented x3 Course Vital Signs Vital signs: Vital Signs Temperature 97.9 F 12/04/24 20:44 Pulse Rate 68 12/04/24 20:44 Respiratory Rate 18 12/04/24 20:44 Blood Pressure 125/75 0706/25 20:44 Pulse Oximetry 100 12/04/24 20:44 Oxygen Delivery Room Air 12/04/24 20:44 Temperature 97.9 F 12/04/24 20:44 Pulse Rate 68 12/04/24 20:44 Respiratory Rate 18 12/04/24 20:44 Blood Pressure 125/75 12/04/24 20:44 Pulse Oximetry 100 12/04/24 20:44 Oxygen Delivery Room Air 12/04/24 20:44 MDM - Fall MDM Narrative Medical decision making narrative: [age] year with a reported history of DVT/PE presents to emergency department for right-sided chest wall pain, abdominal pain and shortness of breath after a mechanical fall that occurred yesterday. Patient states she slipped down 6 stairs. She presents with a large bruise to her left buttock with no induration. She is neurovascularly intact. Exam is notable for the above. Vital signs are stable. Labs show no leukocytosis or anemia. Chemistries are unremarkable. UA with trace leuk esterase, no white blood cells bacteria. Lipase is normal. EKG shows normal sinus rhythm, NC interval shortness to 112, normal QRS duration, normal QTC, no ischemic changes. Troponin is undetectable. negative. CTA chest shows no acute finding, no PE. CT abdomen pelvis shows no acute finding. Patient updated on results. Advised Tylenol ibuprofen as needed for pain and follow-up with her PCP. Discussed strict ED return precautions. She is agreeable with the plan verbalized understanding. Discharged in stable condition. Lab Data 12/04/24 22:19 12/04/24 22:19 Labs: Lab Results 12/04/24 12/04/24 Range/Units 22:19 22:21 WBC 8.6 (4.5-10.0) K/mm3 RBC 3.89 L (4.2-5.4) M/mm3 Hgb 12.0 (12.0-15.0) g/dL Hct 36.1 L (37.0-47.0) % MCV 92.8 (80-100) fl MCH 30.8 (26-34) pg MCHC 33.2 (32-36) g/dl RDW 12.9 (11.5-14.5) % Plt Count 218 (150-375) k/mm3 MPV 11.4 H (7.4-10.4) fl Immature Gran % (Auto) 0.2 (0-0.5) % Neut % (Auto) 48.1 (45.5-73.1) % Lymph % (Auto) 44.2 (18.3-44.2) % [place] % (Auto) 5.8 (2.6-8.5) % Eos % (Auto) 1.4 (0-4.4) % Baso % (Auto) 0.3 (0.2-1.2) % Lymph # (Auto) 3.80 H (0.9-3.2) K/mm3 [place] # (Auto) 0.5 (0.1-0.6) K/mm3 Eos # (Auto) 0.1 (0-0.3) K/mm3 Baso # (Auto) 0.0 (0.0-0.1) K/mm3 Abs Immat Gran (auto) 0.02 (0.00-0.031) K/mm3 Absolute Neuts (auto) 4.1 (1.3-6.7) K/mm3 Absolute Nucleated RBC 0.000 (0.0-0.012) K/mm3 Nucleated RBC % 0.0 (0.0-0.2) % PT 13.0 (11.1-14.7) Seconds INR 1.0 APTT 29.2 (22.3-36.8) Seconds Sodium 138 (137-145) mmol/L Potassium 3.6 (3.4-5.0) mmol/L Chloride 107 (98-107) mmol/L Carbon Dioxide 23 (22-30) mmol/L Anion Gap 8 (4-12) mmol/L BUN 14 (7-17) mg/dL Creatinine 0.70 (0.7-1.0) mg/dL Estim Creat Clear Calc 96 ml/min Estimated GFR > 60 (59 - ) Glucose 101 (65-110) mg/dL Calcium 9.0 (8.4-10.2) mg/dL Total Bilirubin 0.2 (0.2-1.3) mg/dL AST 25 (14-36) U/L ALT 23 (6-35) U/L Alkaline Phosphatase 30 L (38-126) U/L Troponin I < 0.012 (0.000-0.034) ng/mL Total Protein 7.1 (6.3-8.2) g/dL Albumin 4.1 (3.5-5.1) g/dL Lipase 93 (23-300) U/L Urine Color Yellow (Yellow) Urine Appearance Clear (Clear) Urine pH 6.5 (5.0-9.0) Ur Specific [place] 1.011 (1.001-1.035) Urine Protein Negative (Negative) mg/dL Urine Glucose (UA) Negative (Negative) mg/dL Urine Ketones Negative (Negative) mg/dL Ur Blood (Man) Negative (Negative) Urine Nitrate Negative (Negative) Urine Bilirubin Negative (Negative) Urine Urobilinogen 0.2 (<2.0) mg/dL Leukocyte Esterase Rfl Trace H (Negative) ANNE/UL Urine RBC 0-2 (0-2) /hpf Urine WBC 0-5 (0-3) /hpf Ur Squamous Epith Cells Few (Few) /hpf Urine Bacteria None seen /hpf Urine Casts 0-2 POC Urine HCG, Qual Negative (Negative) Discharge Plan Discharge Clinical Impression: Traumatic ecchymosis of buttock, Chest wall contusion, Right sided abdominal pain Patient Disposition: Home Condition: Stable Instructions: Antibiotic Form, Abdominal Pain (ED), Chest Contusion (ED) Additional Instructions: You were evaluated in the emergency department for chest and abdominal pain after a fall. Your workup here is reassuring. He of no broken ribs or organ injury. Please take Tylenol and ibuprofen as needed for pain as directed on the bottle. Return to the emergency department if you develop any new or worsening symptoms. Patient Language: Kittitian Prescriptions: No Action No Home Medications Follow-up/Referrals: Kuldeep Doty MD [Primary Care Provider] -
[2024-12-04 22:23] LABS: BEDSIDEPREGUCG Negative (Negative)
[2024-12-04 22:27] LABS: Hematocrit 36.1 % (37.0-47.0); Hemoglobin 12.0 g/dL (12.0-15.0); Immature Granulocyte Percent A 0.2 % (0-0.5); Lymphocytes Absolute Auto 3.80 K/mm3 (0.9-3.2); Mean Corpuscular HGB Conc 33.2 g/dl (32-36); Mean Corpuscular Hemoglobin 30.8 pg (26-34); Mean Corpuscular Volume 92.8 fl (80-100); Nucleated Red Blood Cells Absolute Auto 0.000 K/mm3 (0.0-0.012); Nucleated Red Blood Cells Perc 0.0 % (0.0-0.2); Platelet Count Result 218 k/mm3 (150-375); Red Blood Count 3.89 M/mm3 (4.2-5.4); White Blood Count 8.6 K/mm3 (4.5-10.0)
[2024-12-04 22:30] LABS: Add Urine Microscopic? YES; Appearance Urine Clear (Clear); Glucose Urine UA Negative (Negative); Leukocyte Esterase Ur Trace LEU/UL (Negative); Nitrate Urine Negative (Negative); Non Pathogenic Casts 0-2; Specific Grav Ur 1.011 (1.001-1.035)
[2024-12-04 22:38] LABS: Alanine Aminotransferase 23 U/L (6-35); Albumin Level 4.1 g/dL (3.5-5.1); Alkaline Phosphatase 30 U/L (38-126); Anion Gap 8 mmol/L (4-12); Aspartate Amino Transferase 25 U/L (14-36); Bilirubin,Total 0.2 mg/dL (0.2-1.3); Blood Urea Nitrogen 14 mg/dL (7-17); Calcium 9.0 mg/dL (8.4-10.2); Carbon Dioxide 23 mmol/L (22-30); Chloride 107 mmol/L (98-107); Estimated CRCL calculation 96 ml/min; Estimated Glomerular Filt Rate > 60; Glucose 101 mg/dL (65-110); INR 1.0; Lipase 93 U/L (23-300); Partial Thromboplastin Time 29.2 Seconds (22.3-36.8); Potassium 3.6 mmol/L (3.4-5.0); Prothrombin Time 13.0 Seconds (11.1-14.7); Sodium 138 mmol/L (137-145); Total Protein 7.1 g/dL (6.3-8.2)
[2024-12-04 22:50] LABS: Troponin I < 0.012 ng/mL (0.000-0.034)
[2024-12-05 01:34] VITALS: BP 104/46; PULSE 63; RESP 18; O2SAT 99
== END 2024-12-05 01:35 | disposition home or self-care (01) ==
PROVIDERS: Emergency Medicine; Emergency Provider Physician Assistant; PCP Family Medicine
DX: S30.0XXA Contusion of lower back and pelvis, initial encounter (principal); S20.219A Contusion of unspecified front wall of thorax, initial encounter; W10.9XXA Fall (on) (from) unspecified stairs and steps, initial encounter; R10.9 Unspecified abdominal pain; Z86.718 Personal history of other venous thrombosis and embolism; Z86.711 Personal history of pulmonary embolism
CPT/HCPCS: 36415; 71275; 74177; 80053; 81001; 81025; 83690; 84484; 85025; 85610; 85730; 93005; 99284; Q9967

== ENCOUNTER 2024-12-19 07:53 | Outpatient (CLI) | payer BC, SELFPAY ==
--- NOTE | ~2024-12-19 | CT_ITS ---
EXAM: CT abdomen wo/w con 12/23/2024 11:24 CDT INDICATION: K86.89 - Other specified diseases of pancreas TECHNIQUE: Multidetector CT of the abdomen without and with intravenous contrast. Coronal and sagitt al reformats were also provided for review. Automatic exposure control was used for this study. CONTRAST: 80 cc of Isovue 370 was used for this study. COMPARISON: None Available. FINDINGS: VISUALIZED CHEST: Visualized lungs are clear. ABDOMEN and PELVIS: LIVER: Within normal limits. GALLBLADDER: No calcified gallstones. BILE DUCTS: No dilatation. SPLEEN: Within normal limits. PANCREAS: 1.4 x 1.2 x 1.2 cm cystic lesion in the proximal body of the pancreas. ADRENAL GLANDS: Within normal limits. KIDNEYS and URETERS: Symmetric enhancement bilaterally. No evidence for hydronephrosis or hydroureter . STOMACH and BOWEL: No abnormal bowel wall thickening. No obstruction. MESENTERY/PERITONEAL CAVITY: No pneumoperitoneum. LYMPH NODES: No lymphadenopathy. ABDOMINAL WALL: Within normal limits. VASCULATURE: Within normal limits. MUSCULOSKELETAL: Within normal limits. IMPRESSION: 1.4 x 1.2 x 1.2 cm cystic lesion in the proximal body of the pancreas. This may represent most likely a mucinous cystic neoplasm versus pseudocyst or IPMN. Contrast enhanced MRI can be performed for fur ther evaluation, as clinically indicated. Reviewed, dictated and finalized at location A. IMPRESSION: 1.4 x 1.2 x 1.2 cm cystic lesion in the proximal body of the pancreas. This may represent most likely a mucinous cystic neoplasm versus pseudocyst or IPMN. Co ntrast enhanced MRI can be performed for further evaluation, as clinically fabricio cated.
--- OUTSIDE RECORDS SUMMARY | 2024-12-19 07:57 | XMS_ITS | Clinical Summary ---
Author Organization [facility] Address [facility] [place] [address] Care Team Providers Care Organizational Development Specialist Name Role Phone Unavailable Primary Care Provider Unavailabl e Social History Tobacco Use Types Packs/Day Years Used Date Smoking Tobacco: Never Assessed Comments Unknown Sex and Gender Information Value Date Recorded Sex Assigned at Not on file Legal Sex Female 3:49 PM ENROLLMENT MANAGEMENT DIRECTOR Gender Identity Not on file Sexual Orientation Not on file Last Filed Vital Signs Vital Sign Reading Time Taken Comments Blood Pressure 118/70 07/28/2011 1:39 PM ENROLLMENT MANAGEMENT DIRECTOR Pulse 64 07/28/2011 1:39 PM ENROLLMENT MANAGEMENT DIRECTOR Temperature - - Respiratory Rate - - [...]
--- OUTSIDE RECORDS SUMMARY | 2024-12-19 07:57 | XMS_ITS | Clinical Summary ---
Author Organization [facility] Address [address] [place] [address] Phone Care Team Providers Care Care Giver Name Role Phone Kuldeep Doty MD Primary Care Provider [phone] Allergies No known active allergies Medications busPIRone [...] on file Legal Sex Female 5:18 PM DJANGO DEVELOPER Gender Identity Not on file Sexual Orientation Not on file Last Filed Vital Signs Vital Sign Reading Time Taken Comments Blood Pressure 110/52 07/25/2020 2:25 PM DJANGO DEVELOPER Pulse 88 07/25/2020 2:25 PM DJANGO DEVELOPER Temperature 36.7 C (98 F) 07/25/2020 2:25 PM DJANGO DEVELOPER Respiratory Rate 16 06/27/2019 9:17 PM DJANGO DEVELOPER Oxygen Saturation 97% 07/25/2020 2:25 PM DJANGO DEVELOPER Inhaled Oxygen Concentration - - Weight 77.7 kg (171 lb 6.4 oz) 07/25/2020 2:25 P M DJANGO DEVELOPER Height 160 cm (5' 3) 07/25/2020 2:25 PM DJANGO DEVELOPER Body Mass Index 30.36 07/25/2020 2:25 PM DJANGO DEVELOPER Plan of Treatment Health Maintenance Due Date Last Done Comments HPV VACCINES (1 - 3-dose series) 09/24/2002 DTAP/TDAP/TD VACCINES (1 - Tdap) 09/24/2006 HEPATITIS B VACCINES (1 of 3 - 19+ 3-dose series) 09/24/2006 HPV/Cotest (21-29) 09/24/2008 HPV/Cotest (30-65) 09/24/2017 CERVICAL CANCER SCREENING 04/20/2021 PAP SMEAR 04/20/2021 04/20/2018, 10/31, 09/24/2015 INFLUENZA VACCINE (#1) 2024 Care Teams Care Giver Relationship Specialty Start Date End Date Kuldeep Doty MD [address] [facility] [address] [facility] [address] [place] [id number] PCP - General Family Practice 05/18/19
== END 2024-12-19 07:54 | disposition home or self-care (01) ==
PROVIDERS: PCP Family Medicine
DX: K86.89 Other specified diseases of pancreas (principal)
CPT/HCPCS: 74170; Q9967

== ENCOUNTER 2025-01-02 08:25 | Outpatient (CLI) | payer BC, SELFPAY ==
--- OUTSIDE RECORDS SUMMARY | 2025-01-02 08:30 | XMS_ITS | Clinical Summary ---
Author Organization [facility] Address [address] [place] [address] Phone Care Team Providers Care Remote Inpatient Coder Name Role Phone Kuldeep Doty MD Primary Care Provider [phone] Allergies No known active allergies Medications busPIRone [...] on file Legal Sex Female 5:18 PM RACE CAR MECHANIC Gender Identity Not on file Sexual Orientation Not on file Last Filed Vital Signs Vital Sign Reading Time Taken Comments Blood Pressure 110/52 07/25/2020 2:25 PM RACE CAR MECHANIC Pulse 88 07/25/2020 2:25 PM RACE CAR MECHANIC Temperature 36.7 C (98 F) 07/25/2020 2:25 PM RACE CAR MECHANIC Respiratory Rate 16 06/27/2019 9:17 PM RACE CAR MECHANIC Oxygen Saturation 97% 07/25/2020 2:25 PM RACE CAR MECHANIC Inhaled Oxygen Concentration - - Weight 77.7 kg (171 lb 6.4 oz) 07/25/2020 2:25 P M RACE CAR MECHANIC Height 160 cm (5' 3) 07/25/2020 2:25 PM RACE CAR MECHANIC Body Mass Index 30.36 07/25/2020 2:25 PM RACE CAR MECHANIC Plan of Treatment Health Maintenance Due Date Last Done Comments HPV VACCINES (1 - 3-dose series) 09/24/2002 DTAP/TDAP/TD VACCINES (1 - Tdap) 09/24/2006 HEPATITIS B VACCINES (1 of 3 - 19+ 3-dose series) 09/24/2006 HPV/Cotest (21-29) 09/24/2008 HPV/Cotest (30-65) 09/24/2017 CERVICAL CANCER SCREENING 04/20/2021 PAP SMEAR 04/20/2021 04/20/2018, 10/31, 09/24/2015 INFLUENZA VACCINE (#1) 2024 Care Teams Remote Inpatient Coder Relationship Specialty Start Date End Date Kuldeep Doty MD [address] [facility] [address] [facility] [address] [place] [phone] PCP - General Family Practice 05/18/19
== END 2025-01-02 08:26 | disposition home or self-care (01) ==
LOC: ANHLAB 08:27
PROVIDERS: PCP Family Medicine; Visit Provider Obstetrics & Gynecology
DX: N97.0 Female infertility associated with anovulation (principal)
CPT/HCPCS: 84144

== ENCOUNTER 2025-01-07 10:21 | Outpatient (CLI) | payer BC, SELFPAY ==
--- OUTSIDE RECORDS SUMMARY | 2025-01-07 10:25 | XMS_ITS | Clinical Summary ---
Author Organization [facility] Address [address] [place] [address] Phone Care Team Providers Care Eeler Name Role Phone Kuldeep Doty MD Primary Care Provider [phone] Allergies No known active allergies Medications busPIRone [...] on file Legal Sex Female 5:18 PM PENCILLER Gender Identity Not on file Sexual Orientation Not on file Last Filed Vital Signs Vital Sign Reading Time Taken Comments Blood Pressure 110/52 07/25/2020 2:25 PM PENCILLER Pulse 88 07/25/2020 2:25 PM PENCILLER Temperature 36.7 C (98 F) 07/25/2020 2:25 PM PENCILLER Respiratory Rate 16 06/27/2019 9:17 PM PENCILLER Oxygen Saturation 97% 07/25/2020 2:25 PM PENCILLER Inhaled Oxygen Concentration - - Weight 77.7 kg (171 lb 6.4 oz) 07/25/2020 2:25 P M PENCILLER Height 160 cm (5' 3) 07/25/2020 2:25 PM PENCILLER Body Mass Index 30.36 07/25/2020 2:25 PM PENCILLER Plan of Treatment Health Maintenance Due Date Last Done Comments HPV VACCINES (1 - 3-dose series) 09/24/2002 DTAP/TDAP/TD VACCINES (1 - Tdap) 09/24/2006 HEPATITIS B VACCINES (1 of 3 - 19+ 3-dose series) 09/24/2006 HPV/Cotest (21-29) 09/24/2008 HPV/Cotest (30-65) 09/24/2017 CERVICAL CANCER SCREENING 04/20/2021 PAP SMEAR 04/20/2021 04/20/2018, 10/31, 09/24/2015 INFLUENZA VACCINE (#1) 2024 Care Teams Eeler Relationship Specialty Start Date End Date Kuldeep Doty MD [address] [facility] [address] [facility] [address] [place] [phone] PCP - General Family Practice 05/18/19
--- OUTSIDE RECORDS SUMMARY | 2025-01-07 10:25 | XMS_ITS | Encounter Summary ---
Author Organization [facility] Address [address] [place] [address] Care Team Providers Care Packing Machine Tender Name Role Phone Kuldeep Doty MD Primary Care Provider Reason for Referral * MRI/CAT/PET Scan (Routine) - Closed Specialty Diagnoses / Procedures Referred By Vianney proctor Referred To Contact Radiology Diagnoses Cyst of pancreas Procedures MRI Abdomen MRCP W WO Contrast Diana Nazario PA [address] [place] [id number] [place] [address] Phone: tel: fax: [facility] Referral ID Status Reason Start Date Expiration Date Visits Re quested Visits Authorized [id number] Closed 01/05/2025 03/05/2025 1 1 Reason for Visit * MRI/CAT/PET Scan (Routine) - Closed Specialty Diagnoses / Procedures Referred By Vianney proctor Referred To Contact Radiology Diagnoses Cyst of pancreas Procedures MRI Abdomen MRCP W WO Contrast Diana Nazario PA [address] [place] [id number] [place] [address] Phone: tel: fax: [facility] Referral ID Status Reason Start Date Expiration Date Visits Re quested Visits Authorized [id number] Closed 01/05/2025 03/05/2025 1 1 Encounter Details Date Type Department Care Team (Latest Contact Info) Description 01/07/2025 8:02 AM CDT Hospital Encounter [facility] Radiology at [facility] [place] [address] [place] [phone] Cyst of pancreas Social History Tobacco Use Types Packs/Day Years Used Date Smoking Tobacco: Never Assessed Comments Unknown Sex and Gender Information Value Date Recorded Sex Assigned at Not on file Legal Sex Female 2:25 PM RN TELE Gender Identity Not on file Sexual Orientation Not on file documented as of this encounter Plan of Treatment Pending Results Name Type Priority Associated Diagnoses Date /Time MRI Abdomen MRCP W WO Contrast Imaging Schedule Routine, Read Routine (OP Routine) Cyst of pancreas 01/07/2025 9:21 AM CDT Scheduled Orders Name Type Priority Associated Diagnoses Orde r Schedule MRI Abdomen MRCP W WO Contrast Imaging Schedule Routine, Read Routine (OP Routine) Cyst of pancreas Once for 1 Occurrences starting 01/07/2025 until 01/07/2025 documented as of this encounter Visit Diagnoses Diagnosis Cyst of pancreas Cyst and pseudocyst of pancreas documented in this encounter Administered Medications Inactive Administered Medications - up to 3 most recent administrations Medication Order MAR Action Action Date Dose Rate Site gadoterate meglumine injection 15 mL 15 mL, intravenous, Once in imaging, contrast, Starting on 01/07/25 at 0907, For 1 dose Contrast Given 01/07/2025 9:07 AM CDT 14 mL sodium chloride 0.9% flush 125 mL 125 mL, intravenous, Once in imaging, line care, Starting on 01/07/25 at 0907, For 1 dose Given 01/07/2025 9:08 AM CDT 125 mL documented in this encounter Care Teams Packing Machine Tender Relationship Specialty Start Date End Date Kuldeep Doty MD [address] [facility] [address] [place] [address] PCP - General Family Medicine 12/28/24 documented as of this encounter
--- OUTSIDE RECORDS SUMMARY | 2025-01-07 10:25 | XMS_ITS | Encounter Summary ---
Author Organization [facility] Address [address] [place] [address] Phone Care Team Providers Care Superintendent Of Schools Name Role Phone Kuldeep Doty MD Primary Care Provider Reason for Referral * MRI/CAT/PET Scan (Routine) - Closed Specialty Diagnoses / Procedures Referred By Contac t Referred To Contact Radiology Diagnoses Cyst of pancreas Procedures MRI Abdomen MRCP W WO Contrast Diana Nazario PA [address] [facility] [id number] [place] [address] Phone: tel: fax: [facility] Referral ID Status Reason Start Date Expiration Date Visits Re quested Visits Authorized [id number] Closed 01/05/2025 03/05/2025 1 1 Encounter Details Date Type Department Care Team (Late st Contact Info) Description 01/06/2025 Orders Only [facility] Surgery [address] [facility] [address] [place] [address] Diana Nazario PA [address] [facility] [id number] [place] [address] Cyst of pancreas (Primary Dx) Social History Tobacco Use Types Packs/Day Years Used Date Smoking Tobacco: Never Assessed Comments Unknown Sex and Gender Information Value Date Recorded Sex Assigned at Not on file Legal Sex Female 2:25 PM WELDING MACHINE ASSEMBLER Gender Identity Not on file Sexual Orientation Not on file documented as of this encounter Plan of Treatment Upcoming Encounters Date Type Department Care Team (Latest Contact Info) Description 01/07/2025 8:02 AM CDT Hospital Encounter [facility] Radiology at [facility] [address] [place] [address] Cyst of pancreas Pending Results Name Type Priority Associated Diagnoses Date /Time MRI Abdomen MRCP W WO Contrast Imaging Schedule Routine, Read Routine (OP Routine) Cyst of pancreas 01/07/2025 9:21 AM CDT Scheduled Orders Name Type Priority Associated Diagnoses Orde r Schedule MRI Abdomen MRCP W WO Contrast Imaging Schedule Routine, Read Routine (OP Routine) Cyst of pancreas Expected: 01/07/2025, Expires: 01/06/2026 documented as of this encounter Visit Diagnoses Diagnosis Cyst of pancreas- Primary Cyst and pseudocyst of pancreas Cyst of pancreas Cyst and pseudocyst of pancreas documented in this encounter Care Teams Superintendent Of Schools Relationship Specialty Start Date End Date Kuldeep Doty MD [address] [facility] [address] [place] [address] PCP - General Family Medicine 12/28/24 documented as of this encounter
--- OUTSIDE RECORDS SUMMARY | 2025-01-07 10:25 | XMS_ITS | Clinical Summary ---
Author Organization [address] Address [address] [place] [address] Care Team Providers Care Comber Operator Name Role Phone Kuldeep Doty MD Primary Care Provider Allergies Active Allergy Reactions Criticality Noted Date Comments Meloxicam Hives Medium 01/07/2025 Encounters Date Type Department Care Team Description 01/07/2025 8:02 AM CDT Hospital Encounter [facility] Radiology at [address] [address] Cyst of pancreas 01/07/2025 Orders Only [facility] Radiology at [address] [address] Belle Burns RN 01/06/2025 Orders Only [facility] [address] [place] [address] [address] [place] [address] Diana Nazario PA Cyst of pancreas (Primary Dx) 01/05/2025 Telephone [facility] [address] [place] [address] Floor [address] [place] [address] Hanane Snow MD 12/27/2024 Orders Only [facility] [address] [place] [address] [address] [place] [address] Diana Nazario PA Pancreatic lesion (Primary Dx) from Last 3 Months Medical History Medical History Date Comments Cyst of pancreas Social History Tobacco Use Types Packs/Day Years Used Date Smoking Tobacco: Never Assessed Comments Unknown Sex and Gender Information Value Date Recorded Sex Assigned at Not on file 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 Gender Identity Not on file Sexual Orientation Not on file Obstetrics History Last Filed Vital Signs Vital Sign [place] Time Taken Comments Blood Pressure - - Pulse - - Temperature - - Respiratory Rate - - Oxygen Saturation - - Inhaled Oxygen Concentration - - Weight 79.4 kg (175 lb) 01/07/2025 8:20 AM CDT Height 160 cm (5' 3) 01/07/2025 8:20 AM CDT Body Mass Index 31 01/07/2025 8:20 AM CDT Plan of Treatment Upcoming Encounters Date Type Department Care Team (Latest Contact Info) Description 01/07/2025 8:02 AM CDT Hospital Encounter [facility] Radiology at [facility] [address] [place] [address] Cyst of pancreas Health Maintenance Due Date Last Done Comments Cervical Cancer Screening 1987 Depression Screening 1987 Hepatitis C Screening 1987 Varicella Vaccines (1 of 2 - 13+ 2-dose series) 09/24/2000 Regular Well Visit/Exam 18-64 09/24/2005 HPV Vaccines (1 - 3-dose SCD M series) 09/24/2014 Covid-19 Vaccine (4 - 2023-2 5 season) 2024 05/27/2021, 09/09/2020, 08/16/2020 Influenza Vaccine (#1) 2025 , 04/23/2020 DTaP/Tdap/Td Vaccine (2 - Td or Tdap) 09/13/2033 09/14/2023, 01/09/2003 Hepatitis B Screening Completed 10/16/1997 , 05/15/1997, 04/10/1997 Pneumococcal vaccine <65 Aged Out No longer eligible based on patient's age to complete this topic Insurance [facility] Care Teams Comber Operator Relationship Specialty Start Date End Date Kuldeep Doty MD [address] [facility] [address] [place] [address] PCP - General Family Medicine 12/28/24
--- OUTSIDE RECORDS SUMMARY | 2025-01-07 10:25 | XMS_ITS | Clinical Summary ---
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.]
--- OUTSIDE RECORDS SUMMARY | 2025-01-07 10:25 | XMS_ITS | Encounter Summary ---
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 Gender Identity Not on file Sexual Orientation Not on file documented as of this encounter Plan of Treatment Upcoming Encounters Date Type Department Care Team (Latest Contact Info) Description 01/07/2025 8:02 AM CDT Hospital Encounter [facility] Radiology at [address] [id number] Cyst of pancreas documented as of this encounter Visit Diagnoses Not on filedocumented in this encounter Care Teams Nurse Executive Relationship Specialty Start Date End Date Kuldeep Doty MD [address] [place] [address] PCP - General Family Medicine 12/28/24 documented as of this encounter
[2025-01-09 10:08] LABS: FSH 7.7 mIU/mL (.)
== END 2025-01-07 10:22 | disposition home or self-care (01) ==
LOC: ANHLAB 10:23
PROVIDERS: PCP Family Medicine; Visit Provider Obstetrics & Gynecology
DX: N97.9 Female infertility, unspecified (principal)
CPT/HCPCS: 36415; 83001

== ENCOUNTER 2025-03-11 20:39 | Emergency (ER) | payer BC, SELFPAY ==
--- OUTSIDE RECORDS SUMMARY | 2025-03-11 20:42 | XMS_ITS | Clinical Summary ---
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
--- OUTSIDE RECORDS SUMMARY | 2025-03-11 20:42 | XMS_ITS | Clinical Summary ---
Author Organization [facility] Address [address] [place] [address] Phone Care Team Providers Care Newspaper Press Operator Apprentice Name Role Phone Kuldeep Doty MD Primary Care Provider [phone] Allergies No known active allergies Medications busPIRone [...] on file Legal Sex Female 5:18 PM FILM NUMBERER Gender Identity Not on file Sexual Orientation Not on file Last Filed Vital Signs Vital Sign [place] Time Taken Comments Blood Pressure 110/52 07/25/2020 2:25 PM FILM NUMBERER Pulse 88 07/25/2020 2:25 PM FILM NUMBERER Temperature 36.7 C (98 F) 07/25/2020 2:25 PM FILM NUMBERER Respiratory Rate 16 06/27/2019 9:17 PM FILM NUMBERER Oxygen Saturation 97% 07/25/2020 2:25 PM FILM NUMBERER Inhaled Oxygen Concentration - - Weight 77.7 kg (171 lb 6.4 oz) 07/25/2020 2:25 P M FILM NUMBERER Height 160 cm (5' 3) 07/25/2020 2:25 PM FILM NUMBERER Body Mass Index 30.36 07/25/2020 2:25 PM FILM NUMBERER Plan of Treatment Health Maintenance Due Date Last Done Comments DTAP/TDAP/TD VACCINES (1 - Tdap) 09/24/2006 HEPATITIS B VACCINES (1 of 3 - 19+ 3-dose series) 09/24/2006 HPV/Cotest (21-29) 09/24/2008 HPV VACCINES (1 - 3-dose SCD M series) 09/24/2014 HPV/Cotest (30-65) 09/24/2017 CERVICAL CANCER SCREENING 04/20/2021 PAP SMEAR 04/20/2021 04/20/2018, 10/31, 09/24/2015 INFLUENZA VACCINE (#1) 2024 Care Teams Newspaper Press Operator Apprentice Relationship Specialty Start Date End Date Kuldeep Doty MD [address] [facility] [address] [place] [address] PCP - General Family Practice 05/18/19
--- OUTSIDE RECORDS SUMMARY | 2025-03-11 20:42 | XMS_ITS | Clinical Summary ---
Author Organization [address] Address [address] [place] [id number] Care Team Providers Care Investigator Fraud Name Role Phone Kuldeep Doty MD Primary Care Provider Allergies Active Allergy Reactions Criticality Noted Date Comments Meloxicam Hives Medium 01/07/2025 Medications busPIRone (BUSPAR) 5 mg tablet Take 1 tablet (5 mg total) by mouth 3 (three) times a day Active Active Problems No known active problems Encounters Date Type Department Care Team Description 5 Orders Only [facility] [address] [facility] [address] [place] [phone] Yaz Griffith MD Amenorrhea (Primary Dx) 5 Telephone [facility] Medicine Hepatobiliary, Pancreatic, & Gastrointestinal Surgery [address] [facility] Advanced Medicine 12th Floor, [place] [phone] Valerie Ham PA 5 Telephone [facility] Medicine Hepatobiliary, Pancreatic, & Gastrointestinal Surgery [address] [facility] Medicine 12th Floor, [place] [address] Valerie Ham PA 5 10:30 AM CDT Office Visit [facility] Medicine Surgery [address] [place] [address] [address] [place] [phone] Hanane Snow MD Serous cystadenoma (Primary Dx); Lung nodule seen on imaging study 5 Telephone [facility] Medicine Surgery [address] [facility] [address] [place] [phone] Anh Evangelista RN 5 Results Follow-Up [facility] Gastroenterology [address] [facility] 2nd Floor [address] [place] [address] Shantanu Hall MD Surgical pathology 5 12:09 PM CDT Anesthesia Event [facility] [address] [place] [address] Lonnie Zacarias MD 5 11:30 AM CDT - 5 12:00 PM CDT Surgery [facility] [address] [place] [address] Shantanu Hall MD ESOPHAGOGASTRODUODENOSCOPY ULTRASOUND FINE NEEDLE ASPIRATION/BIOPSY 5 10:27 AM CDT - 5 1:50 PM CDT Hospital Encounter [facility] [address] [place] [address] Shantanu Hall MD Pancreatic cyst Discharge Disposition: Discharge to home or self care 5 Telephone [facility] Specialty Services [address] [place] [address] Tamiko Enriquez RN GI Preprocedure 5 3:30 PM CDT Lab [facility] [address] [facility] [place] [phone] Pancreatic neoplasm 5 2:00 PM CDT Office Visit [facility] Medicine Surgery [address] [place] [address] [address] [place] [phone] Hanane Snow MD Pancreatic neoplasm (Primary Dx); Pancreas cyst 5 8:02 AM CDT - 5 11:59 PM CDT Hospital Encounter [facility] Radiology at [facility] [address] [place] [address] Cyst of pancreas Discharge Disposition: Discharge to home or self care 5 Orders Only [facility] at [facility] [address] [place] [address] Belle Burns RN 5 [facility] [address] [facility] [address] [place] [phone] Diana Nazario PA Cyst of pancreas (Primary Dx) 5 Telephone [facility] Medicine Surgery [address] [facility] Floor 8 [place] [phone] Hanane Snow MD 5 Orders Only [facility] Medicine Surgery [address] [facility] [address] [place] [phone] Diana Nazario PA Pancreatic lesion (Primary Dx) from Last 3 Months Surgical History Surgery Date Site/Laterality Comments WISDOM TOOTH EXTRACTION MENISCUS SURGERY 06/01/2023 - 05/31/2024 KNEE ARTHROSCOPY 06/01/2023 - 05/31/2024 Left Medical History Medical History Date Comments Cyst of pancreas DVT (deep venous thrombosis) 2018 lef t knee with PE; treted; no longer on meds Obesity Palpitations 2020 Patient states c ardiac workup showed sinus tachycardia Social History Tobacco Use Types Packs/Day Years Used Date Smoking Tobacco: Never Tobacco Cessation:Counseling Given: Not Answered Alcohol Use Standard Drinks/Week Comments Not Currently 0 (1 standard drink = 0.6 oz pur e alcohol) AUDIT-C Answer Date Recorded Q1: How often do you have a drink containing alcohol? Never 01/18/2025 Q2: How many drinks containi ng alcohol do you have on a typical day when you are drinking? Patient does not drink Frequency of Binge Drinking Not on file 12/31 Personal Safety Answer Date Recorded Have you ever been in or are you currently in a harmful physical or emotional relationship or is someone making you feel afraid or unsafe? 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 Gender Identity Not on file Sexual Orientation Not on file Obstetrics History Last Filed Vital Signs Vital Sign Reading Time Taken Comments Blood Pressure 110/68 01/31/2025 10:32 AM CDT Pulse 59 01/31/2025 10:32 AM CDT Temperature 36.3 C (97.3 F) 01/31/2025 10:32 AM CDT Respiratory Rate 18 01/31/2025 10:32 AM CDT Oxygen Saturation 99% 01/31/2025 10:32 AM CDT Inhaled Oxygen Concentration - - Weight 86.7 kg (191 lb 2.2 oz) 01/31/2025 10:32 AM CDT Height 161 cm (5' 3.39) 01/31/2025 10:32 AM CDT Body Mass Index 33.45 01/31/2025 10:32 AM CDT Plan of Treatment Health Maintenance Due Date Last Done Comments Cervical Cancer Screening 1985 Depression Screening 1985 Hepatitis C Screening 1985 Varicella Vaccines (1 of 2 - 13+ 2-dose series) 09/24/2000 Regular Well Visit/Exam 18-64 09/24/2005 HPV Vaccines (1 - 3-dose SCD M series) 09/24/2014 Covid-19 Vaccine (2024-2 6 season) 2025 05/27/2021, 09/09/2020, 08/16/2020 Influenza Vaccine (#1) 2025 , 04/23/2020 DTaP/Tdap/Td Vaccine (2 - Td or Tdap) 09/13/2033 09/14/2023, 01/09/2003 Hepatitis B Screening Completed 10/16/1997 , 05/15/1997, 04/10/1997 Pneumococcal vaccine <65 Aged Out No longer eligible based on patient's age to complete this topic Procedures Procedure Name Priority Date/Time Associated Diagnosis Comments US ENDOSCOPIC IP Routine 01/18/2025 12:38 PM CDT Pancreatic cyst SURGICAL PATHOLOGY Routine 01/18/2025 12 :31 PM CDT Pancreatic cyst UPPER EUS 01/18/2025 11:45 AM CDT POCT HCG, URINE Routine 01/18/2025 10:40 AM CDT CANCER ANTIGEN 19-9 Routine 01/10/2025 3:27 PM CDT Pancreatic neoplasm MRI ABDOMEN MRCP W WO CONTRAST Schedule Routine, Read Routine (OP Routine) 01/07/2025 9:21 AM CDT Cyst of pancreas from Last 3 Months Results * Surgical pathology (01/18/2025 12:31 PM CDT) Tissue (Pancreas, Biopsy) 01/18/2025 12:31 PM CDT Narrative PATHOLOGY [facility] - 01/24/2025 1:50 PM CDT EPIC results best viewed via link to PDF [facility] [place] [address] Note to Patients: This report may contain a detailed description of human tissue sent by a health care provider to the laboratory for pathologic evaluation. The content of this report is essential for diagnosis and may provide important critical findings. This information may be unfamiliar to patients to review without a medical professional present. It is advised that the patient review this report in the presence of a health care provider who can answer questions and explain the details. SURGICAL PATHOLOGY REPORT FINAL Patient Name: CARLOS WILLINHGAM Gender: F : 1985 (Age: 39) Address: [address] [place] [address] [facility] #: [id number] Taken:01/18/2025 Received:01/18/2025 Reported: 01/24/2025 Patient Type: [facility] EP SAME Client [facility] Service: Gastro Location: Physician(s): Chencho Wray M.D. Alida العراقي MD Diagnosis: A. Pancreas, body, cyst, biopsy - Fragments of serous cystadenoma, see comment. madhu/01/20/2025 11:21 By this signature, I attest that the above diagnosis is based upon my personal examination of the slides(and/or other material indicated in the diagnosis). Yossi Mesa M.D. Report Electronically Reviewed and Signed Out By Yossi Mesa M.D. 01/24/2025 13:50:00 Diagnosis Comment The lesional cells are immunoreactive for pancytokeratin and inhibin while negative for chromogranin and synaptophysin. The morphologic and immunohistochemical findings support the above diagnosis. This case was reviewed and discussed at intradepartmental GI pathology consensus conference and those present concur with the above diagnosis. Argelia Gonzalez M.D. History: The patient is a 39-year-old woman with a pancreatic cyst. Operative procedure: EGD ultrasound fine-needle aspiration/biopsy. Specimen(s) Received: A: Fnb pancreas body lesion Gross Description: { Not Entered } cnewho/01/18/2025 14:02 PA(s): MADELINE Mccray By this signature, I attest that the above diagnosis is based upon my personal examination of the slides(and/or other material). Addenda/Procedures Microscopic slide review and interpretation for this case was performed at [facility], Department of Surgical Pathology, [address] [facility], [place] [id number], [place] [id number] CLIA # [id number] The performance characteristics of some immunohistochemical stains, fluorescence in-situ hybridization tests and immunophenotyping by flow cytometry cited in this report (if any) were determined by the Surgical Pathology and Flow Cytometry Departments at [facility] as part of an ongoing associate quality engineer program and in compliance with federally mandated regulations drawn from the Clinical Laboratory Improvement Act of 1988 (CLIA '88). Some of these tests rely on the use of analyte specific reagents and are subject to specific labeling requirements by the US Food and Drug Administration. Such diagnostic tests may only be performed in a facility that is certified by the Department of Health and Human Services as a high complexity laboratory under CLIA '88. The FDA has determined that such clearance or approval is not necessary. This test is used for clinical purposes. It should not be regarded as investigational or for research. Nevertheless, federal rules concerning the medical use of analyte specific reagents require that the following disclaimer be attached to the report: This test was developed and its performance characteristics determined by the Surgical Pathology and Flow Cytometry Departments of [facility]. It has not been cleared or approved by the U. S. Food and Drug Administration. IMAGES AND SCANNED DOCUMENTS, IF INCLUDED, ONLY VIEWABLE IN PDF VERSION OF REPORT us Shantanu Hall MD LAB PATHOLOGY ORDERABLES Fi nal Result PATHOLOGY [facility] [phone] * Upper EUS (01/18/2025 11:45 AM CDT) Anatomical Region Laterality Modality Other Narrative Procedure Note Shantanu Hall MD - 01/18/2025 11:45 AM CDT ENDOSCOPY LAB Patient Name: Carlos Willingham Procedure Date: 01/18/2025 11:45 AM Date of : 1985 Admit Type: Outpatient Age: 39 Gender: Female Attending MD: Shantanu Hall M.D., Room: [facility] ENDOSCOPY ROOM 05 Note Status: Finalized Procedure: Upper EUS Indications: Pancreatic cyst on MRCP; MRCP with 1.5 cmpancreatic body cystic lesion, either side branch IPMN orMCN Comorbidities See the other procedure note for documentation of comorbidities Providers: Shantanu Hall M.D. Referring MD: Hanane Snow M.D. Medicines: Monitored Anesthesia Care, Cipro 400 mg IV Complications: No immediate complications. Estimated Blood Loss: Estimated blood loss: none. Procedure: Pre-Anesthesia Assessment: - Prior to the procedure, a History and Physicalwas performed, and patient medications, allergies and sensitivities were reviewed. The patient'stolerance of previous anesthesia was reviewed. - Immediately prior to administration ofmedications, the patient was re-assessed for adequacy to receive sedatives. The risks, benefits and alternatives were discussed and informed consent was obtained.The [id number] was introduced through the mouth, and advanced to the second part of duodenum Theupper EUS was accomplished without difficulty. Thepatient tolerated the procedure well. Findings: ENDOSONOGRAPHIC FINDING: : The esophagus, stomach and duodenum were examinedendosonographically. The region of the celiac plexus and celiac ganglia was visualized and showed no sign of significant endosonographic abnormality. Thevascular anatomy of the region was normal. There was no sign of significant endosonographic abnormality in the visualized portion of the spleen. There was no sign of significant endosonographic abnormality in the visualized portion of the liver. The pancreatic duct had a normal endosonographic appearance and had a regular endosonographic appearance in the main pancreatic duct. The pancreatic duct measured up to 1 mm in diameter. A multicystic lesion suggestive of a cyst was identified in the pancreatic body. It is not in obvious communication with thepancreatic duct. The lesion measured 13 mm by 13 mm in maximal cross-sectional diameter. There were many compartments. There was no internal debris within the fluid-filled cavity. Fine needle biopsy was performed.Color Doppler imaging was utilized prior to needle puncture to confirm alack of significant vascular structures within the needle path. Two passes were made with the 22 gauge Acquire biopsy needle using atransgastric approach. A visible core of tissue was obtained. Final cytologyresults are pending. There was no sign of significant endosonographic abnormality in the common bile duct. The maximum diameter of the duct was 3 mm. There was no sign of significant endosonographic abnormality in the ampulla. Impression: - Endosonographic images of the spleen were unremarkable. - There was no evidence of significant pathology in the visualized portion of the liver. - The pancreatic duct had a normal endosonographic appearance and had a regular endosonographic appearance in the main pancreatic duct. Thepancreatic duct measured up to 1 mm in diameter. - A 13 mm multicystic lesion was seen in the pancreatic body. Fine needle biopsy performed. - There was no sign of significant pathology in the common bile duct. - There was no sign of significant pathology in the ampulla. Recommendation: - The patient will be observed post-procedure,until all discharge criteria are met. - Observe patient's clinical course. - Continue present medications. - No ibuprofen, naproxen, or other non-steroidal anti-inflammatory drug for 14 days. - Monitor for delayed complications including bleeding, infection, perforation, pancreatitis,etc. - Continue ciprofloxacin 500 mg BID x 3 days. - Await pathology results. - Resume previous diet. - Return to referring physician as previously scheduled. - In the unusual situation that you developabdominal, bleeding or other significant problems in the days following this procedure please call [phone] ask for my nurse, Judie Phan. After hours and evenings please call [phone] and speak to theGI fellow rawhide bone roller. Please tell the fellow that Dr. Hall did your procedure and that you were instructed to have the fellow call me or thephysician covering for me to discuss the management of your condition. If you have an urgent problem, please goto the nearest emergency room and have the ER doctorcall my office during the day or [facility] transfer ([phone]) center after hours and weekends to arrange admission or transfer to our facility. Attending Participation: I personally performed the entire procedure. Electronically signed by Shantanu Hall MD Shantanu Hall M.D. 01/18/2025 12:47:10 PM Number of Addenda: 0 Note Initiated On: 01/18/2025 11:45 AM us Shantanu Hall MD ENDOSCOPY PROCEDURES Final Result * POCT hCG, urine (01/18/2025 10:40 AM CDT) HCG, ur, POC Negative Negative Lot Number [id number] QC Backgroud Clear Acceptable QC Control Line Acceptable Urine 01/18/2025 10:4 0 AM CDT Historical Provider POINT OF CARE TEST ORDERA BLES Final Result * Cancer antigen 19-9 (01/10/2025 3:27 PM CDT) CA 19-9 ag 21.1 0.0 - 35.0 units/mL Comment: Interpretive Data The [place] CA 19-9 assay procedure was used. Results from different manufacturers or methods may not be comparable. Serial testing should be performed using the same method. Testing performed by: [facility], [facility] [facility], [place]., [address] Blood 01/10/2025 3:27 PM CDT 01/10/2025 7:49 PM CDT Amy Cao MD LAB BLOOD ORDERABLES Final Resul t [facility] [address] [facility]. [place] [address] * MRI Abdomen MRCP W WO Contrast (01/07/2025 9:21 AM CDT) Anatomical Region Laterality Modality Body N/A Magnetic Resonan ce 01/09/2025 10:5 1 AM CDT Impressions 01/09/2025 9:05 PM CDT 1. 1.5 cm unilocular pancreatic body cystic lesion without definite communication with the main pancreatic duct, may represent a side branch IPMN or a mucinous cystic neoplasm. A pseudocyst is another consideration if there has been prior history of pancreatitis. No enhancing nodularity or associated pancreatic duct dilatation. 2. 0.9 cm right lower lobe pulmonary nodule. Follow up chest CT in 3 months is recommended. Dictated by: Demetrice Bourne M.D. The radiology attending physician has personally reviewed this study, and had reviewed and/or edited this written report and agrees with it. Electronically signed by: Renee George M.D. Narrative 01/09/2025 9:05 PM CDT EXAMINATION: 1. MAGNETIC RESONANCE IMAGING OF THE ABDOMEN WITH AND WITHOUT CONTRAST 2. THREE DIMENSIONAL RECONSTRUCTION OF THE BILIARY TREE AND PANCREATIC DUCT HISTORY: Pancreatic cyst TECHNIQUE: Magnetic resonance imaging of the abdomen was performed prior to and following the uneventful administration of intravenous contrast. The raw data was processed on the scanner by the technologist for 3 dimensional reconstructions of the intrahepatic ducts, extrahepatics ducts, and pancreatic duct. Protocol: Liver MRCP Contrast: Dotarem (gadoterate) 14 mL COMPARISON: None FINDINGS: Liver: No hepatic steatosis or iron deposition. - Bile ducts: No biliary ductal dilatation. - Focal liver lesions: Scattered T2 hyperintense nonenhancing lesions consistent with cysts. No suspicious liver lesion. - Vasculature: Patent Gallbladder: Normal Pancreas: An approximately 1.5 x 1.6 cm T2 hyperintense nonenhancing unilocular lesion is noted in the region of the pancreatic body. No definite communication with the main pancreatic duct. An additional 6 cm lesion is noted adjacent to that lesion, also demonstrating T2 hyperintensity and non-enhancement. Spleen: A few T2 hyperintense lesions are noted throughout the spleen which may relate to cysts or lymphangiomas. Adrenals: Normal Kidneys: No hydronephrosis. Other Findings: Incidentally noted 9 mm pulmonary nodule at the posterolateral right lung base. Surgical clip is noted in the left breast. Incidentally noted multiple cystic lesions throughout the bilateral breasts. No suspicious osseous lesions. Procedure Note Renee George MD - 01/09/2025 EXAMINATION: 1. MAGNETIC RESONANCE IMAGING OF THE ABDOMEN WITH AND WITHOUT CONTRAST 2. THREE DIMENSIONAL RECONSTRUCTION OF THE BILIARY TREE AND PANCREATIC DUCT HISTORY: Pancreatic cyst TECHNIQUE: Magnetic resonance imaging of the abdomen was performed prior to and following the uneventful administration of intravenous contrast. The raw data was processed on the scanner by the technologist for 3 dimensional reconstructions of the intrahepatic ducts, extrahepatics ducts, and pancreatic duct. Protocol: Liver MRCP Contrast: Dotarem (gadoterate) 14 mL COMPARISON: None FINDINGS: Liver: No hepatic steatosis or iron deposition. - Bile ducts: No biliary ductal dilatation. - Focal liver lesions: Scattered T2 hyperintense nonenhancing lesions consistent with cysts. No suspicious liver lesion. - Vasculature: Patent Gallbladder: Normal Pancreas: An approximately 1.5 x 1.6 cm T2 hyperintense nonenhancing unilocular lesion is noted in the region of the pancreatic body. No definite communication with the main pancreatic duct. An additional 6 cm lesion is noted adjacent to that lesion, also demonstrating T2 hyperintensity and non-enhancement. Spleen: A few T2 hyperintense lesions are noted throughout the spleen which may relate to cysts or lymphangiomas. Adrenals: Normal Kidneys: No hydronephrosis. Other Findings: Incidentally noted 9 mm pulmonary nodule at the posterolateral right lung base. Surgical clip is noted in the left breast. Incidentally noted multiple cystic lesions throughout the bilateral breasts. No suspicious osseous lesions. IMPRESSION: 1. 1.5 cm unilocular pancreatic body cystic lesion without definite communication with the main pancreatic duct, may represent a side branch IPMN or a mucinous cystic neoplasm. A pseudocyst is another consideration if there has been prior history of pancreatitis. No enhancing nodularity or associated pancreatic duct dilatation. 2. 0.9 cm right lower lobe pulmonary nodule. Follow up chest CT in 3 months is recommended. Dictated by: Demetrice Bourne M.D. The radiology attending physician has personally reviewed this study, and had reviewed and/or edited this written report and agrees with it. Electronically signed by: Renee George M.D. Diana CORREA IMG MRI PROCEDURES Final Result from Last 3 Months Insurance [employer] [facility] Advance Directives For more information, please contact: [phone] * Full Code (Latest Code Status on File) Date Activated Date Inactivated Comments 01/18/2025 10:37 AM 01/18/2025 5:50 PM Care Teams Investigator Fraud Relationship Specialty Start Date End Date Kuldeep Doty MD [address] [facility] [address] [place] [address] PCP - General Family Medicine 12/28/24
[2025-03-11 20:58] VITALS: BP 108/47; PULSE 77; RESP 15; TEMP 37.1; O2SAT 100
[2025-03-11 21:03] VITALS: BP 108/47; PULSE 80; RESP 16; O2SAT 99
--- NOTE | 2025-03-11 21:49 | ED_ITS ---
HPI - Extremity Injury (Lower) General Chief Complaint: Extremity Injury, Lower Stated Complaint: LOWER EXTREMITY PAIN/5 WEEKS Time Seen by Provider: 03/11/25 21:28 History of Present Illness HPI Narrative: Patient is a 39-year-old female presents to the ER with left lower extremity numbness/tingling/throbbing. She reports the pain is in the front of her knee and radiates down the back of her calf. Patient reports she is 5 weeks . She endorses a history of a DVT and PE in 2019. Patient reports they believe her DVT was due to control and wisdom teeth removal. She reports she is not currently on blood thinners. Patient denies any shortness a breath, chest pain, recent fevers, or urinary symptoms. Related Data Home Medications ?Medication ?Instructions ?Recorded ?Confirmed ?Last Taken ?Type No Home Medications 06/27/24 02/16/25 U nknown History Allergies Allergy/AdvReac Type Severity Reaction Status Date / Time meloxicam AdvReac Mild Rash Verified 03/11/25 21:05 Review of Systems 2 Review of Systems: All systems reviewed & are unremarkable except as noted in HPI and below PMFSH Past Medical History Medical History Plantar fasciitis of left foot Left knee injury Wears glasses Allergic rhinitis Diastolic dysfunction Anxiety DVT (deep venous thrombosis) History of DVT/PE Pulmonary embolism Migraines Typically 1 time a month. Surgical History Surgical History History of wisdom tooth extraction Family History Family History Father Family history of lung cancer Mother Family history of lung cancer Grandparent History of blood clots Cerebrovascular accident Unknown Hypertension Arthritis Social History Social History Social History: The patient lives in [place]. She has 2 sons, one is 13 years old today and the other is 9 years old. She works at [employer]. She does not answer mother, Jess Jerry, as her surrogate decision-maker and she wishes to be full code. She smokes socially. No alcohol or drug abuse. 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 HEAD: Normocephalic, atraumatic. NECK: Supple. No adenopathy, no masses. RESPIRATORY: Airway patent, respirations nonlabored. Clear to auscultation bilaterally, no rales, rhonchi, wheezing. CARDIOVASCULAR: Regular rate and rhythm without murmurs, rubs, or gallops. Peripheral pulses 2+ and equal bilaterally. ABDOMINAL: Soft, nontender, nondistended, no hepatosplenomegaly. Normoactive BS. MUSCULOSKELETAL: Moves all extremities. Strength/ROM intact without gross deformities. No noticeable swelling on patient's left lower extremity. SKIN: Warm, dry, normal color. No rashes. NEURO: A&O X3. Speech clear. Cranial nerves II-XII intact. No ataxic movements. PSYCHIATRIC: Appropriate mood and affect. Normal interaction. Course Vital Signs Vital signs: Vital Signs Temperature 37.1 C 03/11/25 20:58 Pulse Rate 77 03/11/25 20:58 Respiratory Rate 15 03/11/25 20:58 Blood Pressure 108/47 L 03/11/25 20:58 Pulse Oximetry 100 03/11/25 20:58 Oxygen Delivery Room Air 03/11/25 20:58 Temperature 37.1 C 03/11/25 20:58 Pulse Rate 80 03/11/25 21:03 Respiratory Rate 16 03/11/25 21:03 Blood Pressure 108/47 L 03/11/25 21:03 Pulse Oximetry 99 03/11/25 21:03 Oxygen Delivery Room Air 03/11/25 20:58 MDM - Extremity Injury (Lower) MDM Narrative Medical decision making narrative: Patient is a 39-year-old female presents to the ER with left lower extremity numbness/tingling/throbbing. She reports the pain is in the front of her knee and radiates down the back of her calf. Patient reports she is 5 weeks . She endorses a history of a DVT and PE in 2019. Patient reports they believe her DVT was due to control and wisdom teeth removal. She reports she is not currently on blood thinners. Patient denies any shortness a breath, chest pain, recent fevers, or urinary symptoms. Labs Ordered: CBC, CMP, beta hCG, D-dimer, UA Imaging Ordered: None necessary Medications Ordered: None necessary Results: Patient's D-dimer was negative. Diagnosis: Left leg pain, left knee pain Patient Education/Shared MDM: Results of lab work shared with patient. Patient strongly advised to maintain hydration status upon discharge and follow-up with her OBGYN outpatient as soon as possible. She will not be discharged home with any new prescriptions. Strict return precautions provided. Patient verbalized understanding and is in agreement with plan. Vital signs stable at time of discharge. All questions answered. Differential Diagnosis Differential diagnosis: Likely ankle sprain and strain and other (Deep venous thrombus, calf infection, electrolyte abnormality) Lab Data Attestation: I reviewed the patient's lab results. 03/11/25 22:10 03/11/25 22:10 Labs: Lab Results 03/11/25 03/11/25 Range/Units 22:10 22:20 WBC 6.6 (4.5-10.0) K/mm3 RBC 3.70 L (4.2-5.4) M/mm3 Hgb 11.4 L (12.0-15.0) g/dL Hct 33.7 L (37.0-47.0) % MCV 91.1 (80-100) fl MCH 30.8 (26-34) pg MCHC 33.8 (32-36) g/dl RDW 12.7 (11.5-14.5) % Plt Count 219 (150-375) k/mm3 MPV 10.7 H (7.4-10.4) fl Immature Gran % (Auto) 0.2 (0-0.5) % Neut % (Auto) 50.1 (45.5-73.1) % Lymph % (Auto) 39.5 (18.3-44.2) % Sequoyah % (Auto) 8.2 (2.6-8.5) % Eos % (Auto) 1.4 (0-4.4) % Baso % (Auto) 0.6 (0.2-1.2) % Lymph # (Auto) 2.59 (0.9-3.2) K/mm3 Sequoyah # (Auto) 0.5 (0.1-0.6) K/mm3 Eos # (Auto) 0.1 (0-0.3) K/mm3 Baso # (Auto) 0.0 (0.0-0.1) K/mm3 Abs Immat Gran (auto) 0.01 (0.00-0.031) K/mm3 Absolute Neuts (auto) 3.3 (1.3-6.7) K/mm3 Absolute Nucleated RBC 0.000 (0.0-0.012) K/mm3 Nucleated RBC % 0.0 (0.0-0.2) % D-Dimer 0.35 (<0.48) ug/mL Sodium 139 (137-145) mmol/L Potassium 3.4 (3.4-5.0) mmol/L Chloride 108 H (98-107) mmol/L Carbon Dioxide 21 L (22-30) mmol/L Anion Gap 10 (4-12) mmol/L BUN 13 (7-17) mg/dL Creatinine 0.58 L (0.7-1.0) mg/dL Estim Creat Clear Calc 120 ml/min Estimated GFR > 60 (59 - ) Glucose 101 (65-110) mg/dL Calcium 8.7 (8.4-10.2) mg/dL Total Bilirubin 0.2 (0.2-1.3) mg/dL AST 18 (14-36) U/L ALT 18 (6-35) U/L Alkaline Phosphatase 36 L (38-126) U/L Total Protein 6.4 (6.3-8.2) g/dL Albumin 3.6 (3.5-5.1) g/dL Beta HCG, Quant Pending Urine Color Yellow (Yellow) Urine Appearance Clear (Clear) Urine pH 5.5 (5.0-9.0) Ur Specific Jerome 1.014 (1.001-1.035) Urine Protein Negative (Negative) mg/dL Urine Glucose (UA) Negative (Negative) mg/dL Urine Ketones Negative (Negative) mg/dL Ur Blood (Man) Negative (Negative) Urine Nitrate Negative (Negative) Urine Bilirubin Negative (Negative) Urine Urobilinogen 0.2 (<2.0) mg/dL Leukocyte Esterase Rfl Negative (Negative) ANNE/UL POC Urine HCG, Qual Positive (Negative) Discharge Plan Discharge Clinical Impression: Knee pain, left, Pain of left calf Patient Disposition: Home Condition: Stable Instructions: Antibiotic Form Additional Instructions: Please return to the ER with any worsening symptoms. Follow-up with your OBGYN as soon as possible. You may take Tylenol as needed for pain control. Please remember to drink lots of water. Patient Language: Swazi Prescriptions: No Action No Home Medications Follow-up/Referrals: Kuldeep Doty MD [Primary Care Provider, Family Practice] Jj Worthy MD [Physician, INVESTMENT COUNSELOR] Referral Note: OBGYN Time of Disposition: 22:52
--- OUTSIDE RECORDS SUMMARY | 2025-03-11 21:52 | XMS_ITS | Clinical Summary ---
Author Organization [address] Address [address] [place] [id number] Care Team Providers Care Head Concierge Name Role Phone Kuldeep Doty MD Primary Care Provider Allergies Active Allergy Reactions Criticality Noted Date Comments Meloxicam Hives Medium 01/07/2025 Medications busPIRone (BUSPAR) 5 mg tablet Take 1 tablet (5 mg total) by mouth 3 (three) times a day Active Active Problems No known active problems Encounters Date Type Department Care Team Description 5 Orders Only [facility] [address] [facility] [address] [place] [phone] Yaz Griffith MD Amenorrhea (Primary Dx) 5 Telephone [facility] Medicine Hepatobiliary, Pancreatic, & Gastrointestinal Surgery [address] [facility] Advanced Medicine 12th Floor, [place] [phone] Valerie Ham PA 5 Telephone [facility] Medicine Hepatobiliary, Pancreatic, & Gastrointestinal Surgery [address] [facility] Medicine 12th Floor, [place] [address] Valerie Ham PA 5 10:30 AM CDT Office Visit [facility] Medicine Surgery [address] [place] [address] [address] [place] [phone] Hanane Snow MD Serous cystadenoma (Primary Dx); Lung nodule seen on imaging study 5 Telephone [facility] Medicine Surgery [address] [facility] [address] [place] [address] Anh Evangelista RN 5 Results Follow-Up [facility] Gastroenterology [address] [facility] 2nd Floor [address] [place] [address] Shantanu Hall MD Surgical pathology 5 12:09 PM CDT Anesthesia Event [facility] Endoscopy [address] [place] [address] Lonnie Zacarias MD 5 11:30 AM CDT - 5 12:00 PM CDT Surgery [facility] Endoscopy [address] [place] [address] Shantanu Hall MD ESOPHAGOGASTRODUODENOSCOPY ULTRASOUND FINE NEEDLE ASPIRATION/BIOPSY 5 10:27 AM CDT - 5 1:50 PM CDT Hospital Encounter [facility] Endoscopy [address] [place] [address] Shantanu Hall MD Pancreatic cyst Discharge Disposition: Discharge to home or self care 5 Telephone [facility] Specialty Services [address] [place] [address] Tamiko Enriquez RN GI Preprocedure 5 3:30 PM CDT Lab [facility] at [facility] [address] [facility] [place] [address] Pancreatic neoplasm 5 2:00 PM CDT Office Visit [facility] Medicine Surgery [address] [place] [address] [address] [place] [phone] Hanane Snow MD Pancreatic neoplasm (Primary Dx); Pancreas cyst 5 8:02 AM CDT - 5 11:59 PM CDT Hospital Encounter [facility] at [facility] [address] [place] [address] Cyst of pancreas Discharge Disposition: Discharge to home or self care 5 Orders Only [facility]iology at [facility] [address] [place] [address] Belle Burns RN 5 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 Service: Gastro Location: Physician(s): Chencho Wray M.D. [...] interpretation for this case was performed at [facility], Department of Surgical Pathology, [address] [facility], [place] [id number], [place] [id number] CLIA # [id number] The performance characteristics of some immunohistochemical stains, fluorescence in-situ hybridization tests and immunophenotyping by flow cytometry cited in this report (if any) were determined by the Surgical Pathology and Flow Cytometry Departments at [facility] as part of an ongoing water quality assistant program and in compliance with federally mandated [...] Surgical Pathology and Flow Cytometry Departments of [facility]. It has not been cleared or approved by the U. S. Food and Drug Administration. IMAGES AND SCANNED DOCUMENTS, IF INCLUDED, ONLY VIEWABLE IN PDF VERSION OF REPORT us Shantanu Hall MD LAB PATHOLOGY ORDERABLES Fi nal Result PATHOLOGY [facility] [phone] * Upper EUS (01/18/2025 11:45 AM CDT) Anatomical Region Laterality Modality Other Narrative Procedure Note Shantanu Hall MD - 01/18/2025 11:45 AM CDT ENDOSCOPY LAB Patient Name: Carlos Willingham Procedure Date: 01/18/2025 11:45 AM Date of : 1985 Admit Type: Outpatient Age: 39 Gender: Female Attending MD: Shantanu Hall M.D., Room: [facility] ENDOSCOPY ROOM 05 Note Status: Finalized Procedure: [...] were discussed and informed consent was obtained.The [id number] was introduced through the mouth, and advanced [...] the days following this procedure please call [phone] ask for my nurse, Judie Phan. After hours and evenings please call [phone] and speak to theGI fellow shrimp pond laborer. Please tell the fellow that Dr. Hall did your procedure and that you were instructed to have the fellow call me or thephysician covering for me to discuss the management of your condition. If you have an urgent problem, please goto the nearest emergency room and have the ER doctorcall my office during the day or [facility] transfer ([phone]) center after hours and weekends to arrange [...] using the same method. Testing performed by: [facility] [facility], [place]., [address] Blood 01/10/2025 3:27 PM CDT 01/10/2025 7:49 PM CDT Amy aCo MD LAB BLOOD ORDERABLES Final Resul t [facility] [address] [facility]. [place] [address] * MRI Abdomen MRCP W [...] 3 months is recommended. Dictated by: Demetrice oBurne M.D. The radiology attending physician has personally reviewed this study, and had reviewed and/or edited this written report and agrees with it. Electronically signed by: Renee George M.D. Diana CORREA IMG MRI PROCEDURES Final Result from Last 3 Months Insurance Row [place] [facility] Advance Directives For more information, please contact: [phone] * Full Code (Latest Code Status on File) Date Activated Date Inactivated Comments 01/18/2025 10:37 AM 01/18/2025 5:50 PM Care Teams Head Concierge Relationship Specialty Start Date End Date Kudleep Doty MD [address] [facility] [address] [place] [address] PCP - General Family Medicine 12/28/24
--- OUTSIDE RECORDS SUMMARY | 2025-03-11 21:53 | XMS_ITS | Clinical Summary ---
Author Organization [facility] Address [address] [place] [address] Phone Care Team Providers Care Hotel Front Desk Agent Name Role Phone Kuldeep Doty MD Primary Care Provider [phone] Allergies No known active allergies Medications busPIRone [...] on file Legal Sex Female 5:18 PM NOVELTY TWISTER OPERATOR Gender Identity Not on file Sexual Orientation Not on file Last Filed Vital Signs Vital Sign Reading Time Taken Comments Blood Pressure 110/52 07/25/2020 2:25 PM NOVELTY TWISTER OPERATOR Pulse 88 07/25/2020 2:25 PM NOVELTY TWISTER OPERATOR Temperature 36.7 C (98 F) 07/25/2020 2:25 PM NOVELTY TWISTER OPERATOR Respiratory Rate 16 06/27/2019 9:17 PM NOVELTY TWISTER OPERATOR Oxygen Saturation 97% 07/25/2020 2:25 PM NOVELTY TWISTER OPERATOR Inhaled Oxygen Concentration - - Weight 77.7 kg (171 lb 6.4 oz) 07/25/2020 2:25 P M NOVELTY TWISTER OPERATOR Height 160 cm (5' 3) 07/25/2020 2:25 PM NOVELTY TWISTER OPERATOR Body Mass Index 30.36 07/25/2020 2:25 PM NOVELTY TWISTER OPERATOR Plan of Treatment Health Maintenance Due Date Last Done Comments DTAP/TDAP/TD VACCINES (1 - Tdap) 09/24/2006 HEPATITIS B VACCINES (1 of 3 - 19+ 3-dose series) 09/24/2006 HPV/Cotest (21-29) 09/24/2008 HPV VACCINES (1 - 3-dose SCD M series) 09/24/2014 HPV/Cotest (30-65) 09/24/2017 CERVICAL CANCER SCREENING 04/20/2021 PAP SMEAR 04/20/2021 04/20/2018, 10/31, 09/24/2015 INFLUENZA VACCINE (#1) 2024 Care Teams Hotel Front Desk Agent Relationship Specialty Start Date End Date Kuldeep Doty MD [address] [facility] [address] [place] [address] PCP - General Family Practice 05/18/19
[2025-03-11 22:22] LABS: BEDSIDEPREGUCG Positive (Negative)
[2025-03-11 22:23] LABS: Add Urine Microscopic? NO; Appearance Urine Clear (Clear); Glucose Urine UA Negative (Negative); Hematocrit 33.7 % (37.0-47.0); Hemoglobin 11.4 g/dL (12.0-15.0); Immature Granulocyte Percent A 0.2 % (0-0.5); Leukocyte Esterase Ur Negative LEU/UL (Negative); Lymphocytes Absolute Auto 2.59 K/mm3 (0.9-3.2); Mean Corpuscular HGB Conc 33.8 g/dl (32-36); Mean Corpuscular Hemoglobin 30.8 pg (26-34); Mean Corpuscular Volume 91.1 fl (80-100); Nitrate Urine Negative (Negative); Nucleated Red Blood Cells Absolute Auto 0.000 K/mm3 (0.0-0.012); Nucleated Red Blood Cells Perc 0.0 % (0.0-0.2); Platelet Count Result 219 k/mm3 (150-375); Red Blood Count 3.70 M/mm3 (4.2-5.4); Specific Grav Ur 1.014 (1.001-1.035); White Blood Count 6.6 K/mm3 (4.5-10.0)
[2025-03-11 22:37] LABS: Alanine Aminotransferase 18 U/L (6-35); Albumin Level 3.6 g/dL (3.5-5.1); Alkaline Phosphatase 36 U/L (38-126); Anion Gap 10 mmol/L (4-12); Aspartate Amino Transferase 18 U/L (14-36); Bilirubin,Total 0.2 mg/dL (0.2-1.3); Blood Urea Nitrogen 13 mg/dL (7-17); Calcium 8.7 mg/dL (8.4-10.2); Carbon Dioxide 21 mmol/L (22-30); Chloride 108 mmol/L (98-107); Estimated CRCL calculation 120 ml/min; Estimated Glomerular Filt Rate > 60; Glucose 101 mg/dL (65-110); Potassium 3.4 mmol/L (3.4-5.0); Sodium 139 mmol/L (137-145); Total Protein 6.4 g/dL (6.3-8.2)
[2025-03-11 23:49] LABS: Beta HCG Quantitative 12929.00 mIU/ML
== END 2025-03-11 23:30 | disposition home or self-care (01) ==
PROVIDERS: Emergency Provider Registered Nurse; PCP Family Medicine
DX: O26.891 Other specified pregnancy related conditions, first trimester (principal); M25.562 Pain in left knee; M79.662 Pain in left lower leg; O99.331 Smoking (tobacco) complicating pregnancy, first trimester; F17.200 Nicotine dependence, unspecified, uncomplicated; Z3A.01 Less than 8 weeks gestation of pregnancy; Z86.718 Personal history of other venous thrombosis and embolism; Z86.711 Personal history of pulmonary embolism
CPT/HCPCS: 36415; 80053; 81003; 81025; 84702; 85025; 85380; 99283

== ENCOUNTER 2025-03-15 08:29 | Outpatient (CLI) | payer BC, SELFPAY ==
--- NOTE | ~2025-03-15 | US_ITS ---
EXAMINATION: US OB <=14 wk fetus w TV DATE: 03/15/2025 09:06 INDICATION: Encounter for supervision of normal during first trimester. Establish dating of . TECHNIQUE: Real-time pelvic ultrasound utilizing both a transvaginal and transabdominal probe was performed. The interpreting radiologist was not present for the study. COMPARISON: None. FINDINGS: The uterus measures 10.1 x 6.4 x 5.0 cm. There is an intrauterine gestational sac. A yolk sac and pole are identified. The crown rump length measures 3.4 mm, which correlates with an estimated gestational age of 6 weeks and 0 days. heart motion is identified measuring 113 beats per minute (bpm) by M-mode Doppler. 1.5 x 1.0 x 1.0 cm mixed hypoechoic and anechoic small subchorionic hematoma along the inferior margin of the gestational sac. The left ovary measures 2.5 x 3.1 x 2.0 cm. Vascular flow identified in the left ovary on color Doppler. The right ovary is not visualized. There is no free fluid in the pelvis. IMPRESSION: 1. Single living fetus with heart rate of 113 bpm. 2. Gestational age by ultrasound of 6 weeks 0 day(s) +/- 4 day(s) with ultrasound estimated date of delivery (RUPERTO) of 11/08/2025. 3. Small subchorionic hematoma along the inferior margin of the gestational sac. Reviewed, dictated and finalized at location A. IMPRESSION: 1. Single living fetus with heart rate of 113 bpm. 2. Gestational age by ultrasound of 6 weeks 0 day(s) +/- 4 day(s) with ultraso und estimated date of delivery (RUPERTO) of 11/08/2025. 3. Small subchorionic hematoma along the inferior margin of the gestational sac .
== END 2025-03-15 08:30 | disposition home or self-care (01) ==
PROVIDERS: PCP Obstetrics & Gynecology; Visit Provider Obstetrics & Gynecology
DX: Z34.90 Encounter for supervision of normal pregnancy, unspecified, unspecified trimester (principal)
CPT/HCPCS: 76801; 76817